=== PATIENT | female | born 1945 | race Caucasian/White ===

== ENCOUNTER 2017-07-17 06:37 | Day surgery (SDC) | payer MEDICARE, BC ==
[2017-07-17] MEDS ORDERED: Sodium Chloride 0.9% 10 ML Syringe FLUSH PRN (07:15)
[2017-07-17] MEDS ORDERED: Lactated Ringers 1,000 ML IV SCH (07:15)
[2017-07-17] MEDS ORDERED: Propofol 200 MG/20 ML SDV IV ONE (09:13)
[2017-07-17] MEDS ORDERED: Atropine 0.4 MG/ML SDV IVPUSH ONE (09:13)
[2017-07-17] MEDS ORDERED: Midazolam 1 MG/ML 2 ML SDV IV ONE (09:13)
--- NOTE | 2017-07-17 10:03 | PCM.OPNOTE ---
- General Post-Op/Procedure Note Date of Surgery/Procedure: 07/17/17 Operative Procedure(s): egd with bx. c scope with bx Findings: hiatal hernia gastritis transverse and rectal polyp sigmoid diverticulosis Pre Op Diagnosis: anemia Post-Op Diagnosis: hiatal hernia. gastritis. transverse and rectal polyp. sigmoid diverticulosis Anesthesia Technique: [facility] [place] Primary Surgeon: Haresh Munguia Anesthesia Provider: Angelito Renteria Pathology: stomach transversed and rectal polyp Complications: None Condition: Good Free Text/Narrative:: see dictation
--- NOTE | 2017-07-17 10:18 | OR ---
DATE OF OPERATION: 07/17/2017 SURGEON: Haresh Munguia MD PROCEDURES PERFORMED: 1. EGD with cold forceps biopsy. 2. Colonoscopy with cold forceps biopsy. PREOPERATIVE DIAGNOSIS: Asymptomatic anemia. POSTOPERATIVE DIAGNOSES: 1. Mild gastritis. 2. Hiatal hernia. 3. Hyperplastic polyps of the transverse and rectum. 4. Sigmoid diverticulosis. INDICATIONS FOR PROCEDURE: This is a 71-year-old white female who was referred with the above-mentioned complaints. She was offered and accepted an EGD and colonoscope. DESCRIPTION OF PROCEDURE: After an excellent IV sedation was administered, the bite block was inserted. The flexible endoscope was passed without difficulty down the patient's esophagus and into the stomach. The stomach was insufflated. Scope was passed through the pylorus, to the second portion of the duodenum, and slowly withdrawn. The following findings were noted. 1. Duodenum was unremarkable. 2. Stomach demonstrated a hiatal hernia with approximately one-third of the stomach in the chest. Mild gastritis was noted. Biopsies were taken. 3. Esophagus, GE junction 30 cm, and was unremarkable. The stomach was deflated and the scope was removed. Our attention was then turned to the colon. Digital rectal exam was performed. No marked abnormality was noted. Flexible colonoscope was inserted and advanced to the cecum without difficulty. The prep was excellent. The following findings were noted. Ascending colon was unremarkable. Transverse colon, a small hyperplastic polyp, biopsied with cold biopsy forceps and sent for permanent. Descending colon, unremarkable. Sigmoid, sigmoid diverticulosis. Rectum, small hyperplastic polyp, biopsied with cold biopsy forceps and sent for permanent. Colon was deflated. Scope was removed. The patient tolerated the procedure well and was taken to the recovery room in a good condition. /[id number] /MODL
[2017-07-17 11:06] VITALS: BP 126/72
== END 2017-07-17 10:53 | disposition home or self-care (01) ==
LOC: FB.SDS 06:37
PROVIDERS: ATTEND Surgery
DX: D50.9 Iron deficiency anemia, unspecified (principal); K29.50 Unspecified chronic gastritis without bleeding; K44.9 Diaphragmatic hernia without obstruction or gangrene; D12.3 Benign neoplasm of transverse colon; K57.30 Diverticulosis of large intestine without perforation or abscess without bleeding; K62.1 Rectal polyp; I10 Essential (primary) hypertension; E03.9 Hypothyroidism, unspecified; Z87.891 Personal history of nicotine dependence; Z79.899 Other long term (current) drug therapy; Z91.018 Allergy to other foods
CPT/HCPCS: 00813-QZ; 88305; 88342; J0461; J2250; J2704; J7120

== ENCOUNTER 2018-07-07 07:13 | Day surgery (SDC) | payer MEDICARE, BC ==
[2018-07-07] MEDS ORDERED: Lactated Ringers 1,000 ML IV ONE (07:14)
[2018-07-07] MEDS ORDERED: Midazolam 1 MG/ML 2 ML SDV IV ONE (07:14)
[2018-07-07] MEDS ORDERED: fentaNYL 100 MCG/2 ML SDV IV ONE (07:14)
[2018-07-07] MEDS ORDERED: Lidocaine 2% 100 MG/5 ML Syringe IVPUSH ONE (07:14)
[2018-07-07] MEDS ORDERED: ePHEDrine 50 MG/ML SDV IV ONE (07:14)
[2018-07-07] MEDS ORDERED: Ondansetron 4 MG/2 ML SDV IVPUSH ONE (07:14)
[2018-07-07] MEDS ORDERED: Dexamethasone 4 MG/ML 5 ML MDV IVPUSH ONE (07:14)
[2018-07-07] MEDS ORDERED: Ketorolac 30 MG/ML SDV IVPUSH ONE (07:14)
[2018-07-07] MEDS ORDERED: HYDROmorphone 2 MG/ML SDV IV ONE (07:14)
[2018-07-07] MEDS ORDERED: Neostigmine Methylsulfate 10 MG/10 ML MDV IVPUSH ONE (07:14)
[2018-07-07] MEDS ORDERED: Rocuronium 50 MG/5 ML Vial IVPUSH ONE (07:14)
[2018-07-07] MEDS ORDERED: Glycopyrrolate 0.2 MG/ML 5 ML MDV IV ONE (07:14)
[2018-07-07] MEDS ORDERED: Propofol 200 MG/20 ML SDV IV ONE (07:14)
[2018-07-07] MEDS ORDERED: Lactated Ringers 1,000 ML IV SCH (07:30)
[2018-07-07] MEDS ORDERED: Sodium Chloride 0.9% 10 ML Syringe FLUSH PRN (07:30)
[2018-07-07] MEDS ORDERED: cefOXitin 2 GM in Sodium Chloride 0.9% 100 ML IV ONE (09:00)
[2018-07-07] MEDS ORDERED: cefOXitin 2 GM Vial IV ONE (09:00)
[2018-07-07] MEDS ORDERED: Lidocaine 1% with EPINEPHrine 1:100,000 20 ML MDV INJECT ONE (09:27)
[2018-07-07] MEDS ORDERED: Bupivacaine 0.5% 30 ML SDV INJECT ONE (09:27)
--- NOTE | 2018-07-07 10:09 | PCM.OPNOTE ---
- General Post-Op/Procedure Note Date of Surgery/Procedure: 07/07/18 Operative Procedure(s): lap cholecystectomy Findings: critical view obtained. Pre Op Diagnosis: sx gallstones Post-Op Diagnosis: Same Anesthesia Technique: General ET Tube, Local (10 ml 1% lido with epi/0.5% buvipicaine) Primary Surgeon: Haresh Munguia Anesthesia Provider: Nalini Stack (ARNEL Salazar ) Pathology: gallstones Complications: None Condition: Good Free Text/Narrative:: see dictation
[2018-07-07] MEDS ORDERED: Acetaminophen/HYDROcodone 325-5 MG Tab PO PRN (10:11)
[2018-07-07 12:05] VITALS: BP 138/76
--- NOTE | 2018-07-08 09:12 | OR ---
DATE OF OPERATION: 07/07/2018 SURGEON: Haresh Munguia MD PROCEDURE PERFORMED: Laparoscopic cholecystectomy. PREOPERATIVE DIAGNOSIS: Symptomatic cholelithiasis. POSTOPERATIVE DIAGNOSIS: Symptomatic cholelithiasis. INDICATIONS FOR PROCEDURE: This is a 72-year-old white female, referred with a history of right upper quadrant abdominal pain. Subsequent workup demonstrated what appeared to be cholelithiasis. Her history is consistent with biliary colic. She was offered and accepted a laparoscopic cholecystectomy. DESCRIPTION OF OPERATION: After an excellent general anesthetic was administered, the patient was prepped and draped in usual sterile manner. Grand total of 10 mL of 1:1 mixture of 1% lidocaine with epinephrine and 0.5% bupivacaine was used to infiltrate our port sites, started at the level of the umbilicus, and after infiltrating with our local, a small vertical midline incision was made. Blunt dissection was carried out, exposing the midline fascia. Fascia was then elevated by placing 2 stay sutures on either side of the midline fascia. An incision was made through the fascia, and the abdominal cavity was entered. After digital palpation to ensure no adhesions, a 10.5-mm Mary trocar was inserted into the patient's abdomen. The patient was then insufflated to 15 mmHg pressure with carbon dioxide, and three 5 mm ports were placed, one in the midline epigastrium and two below the right costal margin. At this point, the patient became bradycardic, pressure was immediately released, and once Anesthesia resolved the situation, the operation was carried out with the pressures at 10 mmHg without any further vasovagal response. Gallbladder was grasped and retracted in a cephalad fashion. The infundibulum was grasped. Blunt dissection was carried out, exposing the cystic duct and cystic artery. After obtaining a critical view, three clips were placed proximally on the cystic duct and one distally, which was then transected. There were some peritoneal adhesions that had a clip placed proximally and distally prior to transection and then three clips were placed proximally on the cystic artery and one distally and this was transected as well. The gallbladder was then dissected free from the gallbladder fossa using electrocautery. Specimen was passed through the periumbilical port and delivered out through the specimen bag. After irrigating and ensuring hemostasis of the gallbladder bed with electrocautery, the trocars were removed under direct visualization. No hemorrhage was noted from the port sites. The periumbilical site was closed with a [id number] 0 Vicryl to approximate the fascia. Ryan were used to close the skin. Dressing was applied. Needle, sponge, and instrument counts were reported as correct. The patient was taken to recovery in good condition. /[id number] /MODL
== END 2018-07-07 12:17 | disposition home or self-care (01) ==
LOC: FB.SDS 07:13
PROVIDERS: ATTEND Surgery
DX: K66.0 Peritoneal adhesions (postprocedural) (postinfection) (principal); K80.12 Calculus of gallbladder with acute and chronic cholecystitis without obstruction; R00.1 Bradycardia, unspecified; I10 Essential (primary) hypertension; E03.9 Hypothyroidism, unspecified; M19.90 Unspecified osteoarthritis, unspecified site; K21.9 Gastro-esophageal reflux disease without esophagitis; Z87.891 Personal history of nicotine dependence; Z91.018 Allergy to other foods; Z79.899 Other long term (current) drug therapy
CPT/HCPCS: 00790; 47562; 88304; A9270; J0694; J1100; J1170; J1885; J2001; J2250; J2405; J2704; J2710; J3010; J3490; J7120

== ENCOUNTER 2018-07-09 16:56 | Inpatient (IN) | payer MEDICARE, BC ==
--- NOTE | 2018-07-09 17:12 | EDM.PDOC ---
ED HPI GENERAL MEDICAL PROBLEM - General Stated Complaint: ACHEY Time Seen by Provider: 07/09/18 16:56 Source of Information: Reports: Patient, Family History Limitations: Reports: Other (abdominal pain) - History of Present Illness INITIAL COMMENTS - FREE TEXT/NARRATIVE: 72 y.o.w.f S/P Cholecystectomy last Friday, came to te ed due to worsening pain at her RUQ of her abdomen and suprapubic area. 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 No F/C. pt has difficulty walking due to abd. pain. Ever step she takes makes her abd. pain worse. No Fall, no new trauma to her abdomen, no dysuria. Pt took her pain meds as recommended. No Dizziness, no other acute med issues. BP 128/84 RR 20 Temp 36.9 Pulse ox 96% on RA Pulse 104 Onset Date: 07/07/18 Onset Time: 11:00 Duration: Day(s):, Intermittent Location: Reports: Abdomen Quality: Reports: Dull, Pressure Severity: Moderate Improves with: Reports: Rest Worsens with: Reports: Movement Context: Reports: Other (S/P GB surgery) Associated Symptoms: Reports: Cough, Loss of Appetite R upper abdomen, midback, hip & R shoulder Pain Score (Numeric/FACES): 9 - Related Data Allergies Allergy/AdvReac Type Severity Reaction Status Date / Time grapefruit AdvReac Nausea Verified 07/09/18 17:21 Home Meds: Home Meds Cyanocobalamin (Vitamin B12) [Vitamin B12] 1,000 mcg PO DAILY 11/14/14 [History] Vitamin E 1,000 unit PO DAILY 11/14/14 [History] Bisoprolol Fumarate/HCTZ [Ziac 5-6.25 MG] 1 tab PO DAILY 11/15/14 [History] Betamethasone Dipropionate [Diprosone 0.05% Crm] 1 applic TP BID PRN 07/16/17 [ History] Ferrous Sulfate 325 mg PO DAILY 07/16/17 [History] Furosemide [Lasix] 20 mg PO DAILY PRN 07/16/17 [History] Levothyroxine Sodium 137 mcg PO DAILY 07/16/17 [History] Pantoprazole Sodium [Protonix] 20 mg PO DAILY 07/06/18 [History] Acetaminophen/HYDROcodone [Dudley 325-5 MG] 1 - 2 tab PO Q6H PRN #20 tab [Rx] Celecoxib [CeleBREX] 100 mg PO BID #10 cap 07/07/18 [Rx] Past Medical History HEENT History: Reports: Cataract, Glaucoma, Hard of Hearing, Other (See Below) Other HEENT History: presbyopia. pseudophakia bilat. Cardiovascular History: Reports: Blood Clots/VTE/DVT, Hypertension Respiratory History: Reports: None Gastrointestinal History: Reports: Gastritis Genitourinary History: Reports: None ORIENTATION AND MOBILITY SPECIALIST History: Reports: Other ORIENTATION AND MOBILITY SPECIALIST History: SUE for cervical CA. II PARA II Musculoskeletal History: Reports: Arthritis, Osteoarthritis Neurological History: Reports: None Psychiatric History: Reports: None Endocrine/Metabolic History: Reports: Hypothyroidism, Obesity/BMI 30+ Hematologic History: Reports: Anemia, Blood Transfusion(s) Immunologic History: Reports: None Oncologic (Cancer) History: Reports: Breast, Cervix Dermatologic History: Reports: None - Infectious Disease History Infectious Disease History: Reports: Chicken Pox, Measles - Past Surgical History Head Surgeries/Procedures: Reports: None HEENT Surgical History: Reports: Cataract Surgery, Other (See Below) Other HEENT Surgeries/Procedures: IRIDOTOMY IRIDECTOMY LASER SURGERY-BILATERAL. PHACO IOL BILATERAL Cardiovascular Surgical History: Reports: Vascular Surgery Other Cardiovascular Surgeries/Procedures: RADIOFREQUENCY ABLATION OF LEFT GSV Respiratory Surgical History: Reports: None GI Surgical History: Reports: Colonoscopy, EGD Female Surgical History: Reports: Hysterectomy, Mastectomy Endocrine Surgical History: Reports: None Neurological Surgical History: Reports: None Musculoskeletal Surgical History: Reports: Knee Replacement, Other (See Below) Other Musculoskeletal Surgeries/Procedures:: TRIGGER FINGER RELEASE, BILATERAL TOTAL KNEE REPLACEMENT. Oncologic Surgical History: Reports: Mastectomy Dermatological Surgical History: Reports: None Social & Family History - Family History Family Medical History: Noncontributory - Caffeine Use Caffeine Use: Reports: Coffee Other Caffeine Use: 5 cups/day ED ROS GENERAL - Review of Systems Review Of Systems: See Below Constitutional: Reports: Malaise HEENT: Reports: No Symptoms Respiratory: Reports: No Symptoms Cardiovascular: Reports: No Symptoms Endocrine: Reports: No Symptoms GI/Abdominal: Reports: Abdominal Pain : Reports: Other (suprapubic pain) Musculoskeletal: Reports: No Symptoms Skin: Reports: Other (surgical wounds) Neurological: Reports: No Symptoms Psychiatric: Reports: No Symptoms Hematologic/Lymphatic: Reports: No Symptoms Immunologic: Reports: No Symptoms ED EXAM, GI/ABD - Physical Exam Exam: See Below Exam Limited By: Other (abd.pain) General Appearance: Alert, WD/WN, Moderate Distress Eyes: Bilateral: Normal Appearance Ears: Normal External Exam Nose: Normal Inspection Throat/Mouth: Normal Inspection, Normal Lips, Normal Voice, No Airway Compromise Head: Atraumatic, Normocephalic Neck: Normal Inspection, Supple, Non-Tender, Full Range of Motion Respiratory/Chest: No Respiratory Distress, Lungs Clear, Normal Breath Sounds, Chest Non-Tender Cardiovascular: Normal Peripheral Pulses, Regular Rate, Rhythm, No Edema GI/Abdominal Exam: Distended, Guarding, Tender (RUQ of abdomen and supra pubic. ), Abnormal Bowel Sounds (Female) Exam: Deferred Rectal (Female) Exam: Deferred Back Exam: Normal Inspection, Full Range of Motion Extremities: Normal Inspection, Normal Range of Motion, Non-Tender, No Pedal Edema, Normal Capillary Refill Neurological: Alert, Oriented, CN II-XII Intact, Normal Cognition, Abnormal Gait (due to abd. pain) Psychiatric: Normal Affect, Normal Mood Skin Exam: Pallor, Other (well healing surgical scars) Lymphatic: No Adenopathy Course - Vital Signs Text/Narrative:: 72 y.o.w.f S/P Cholecystectomy last Friday, came to te ed due to worsening pain at her RUQ of her abdomen and suprapubic area. 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 No F/C. pt has difficulty walking due to abd. pain. Ever step she takes makes her abd. pain worse. No Fall, no new trauma to her abdomen, no dysuria. Pt took her pain meds as recommended. No Dizziness, no other acute med issues. BP 128/84 RR 20 Temp 36.9 Pulse ox 96% on RA Pulse 104 PE: lll apearing 72 y.o.w.f S/P GB surgery last Friday. Imaging: Please see Dr. Munguia's note labs: CBC: NL Neutros were 84.8 % however CMP: Na 133 K 3.3 Cl 95 GFR > 60 Ca 8.8 BUN/Cr. ratio elevated, TB 4.6 Ind Bili 2.5 DB 2.12 Glc 138 Impression: Abd. pain after surgery with elevated liver enzymes Pt was stable in the Ed 5.10 pm Consultation: Dr. Munguia, Surgeon: Order CBC and CMP and call him for the results 5.30 pm: Dr. Munguia arrived in the ED and took over to care of this patient. Last Recorded V/S: Last Vital Signs Temp 37.8 C 07/12/18 07:51 Pulse 88 07/12/18 07:51 Resp 18 07/12/18 07:51 BP 135/73 07/12/18 07:51 Pulse Ox 93 L 07/12/18 07:51 - Orders/Labs/Meds Labs: Laboratory Tests 07/09/18 07/09/18 07/09/18 Range/Units 17:21 17:21 17:21 WBC 10.6 (4.5-12.0) X10-3/uL RBC 4.68 (3.23-5.20) x10(6)uL Hgb 15.3 (11.5-15.5) g/dL Hct 43.9 (30.0-51.3) % MCV 93.8 (80-96) fL MCH 32.6 (27.7-33.6) pg MCHC 34.8 (32.2-35.4) g/dL RDW 12.1 (11.5-15.5) % Plt Count 236 (125-369) X10(3)uL MPV 7.8 (7.4-10.4) fL Neut % (Auto) 84.8 H (46-82) % Lymph % (Auto) 7.4 L (13-37) % [place] % (Auto) 7.2 (4-12) % Eos % (Auto) 0 L (1.0-5.0) % Baso % (Auto) 1 (0-2) % Neut # (Auto) 8.9 H (1.6-8.3) # Lymph # (Auto) 0.8 (0.6-5.0) # Mobile # (Auto) 0.8 (0.0-1.3) # Eos # (Auto) 0.0 (0.0-0.8) # Baso # (Auto) 0.1 (0.0-0.2) # PT (8.7-11.1) INR (0.89-1.13) Sodium 133 L (135-145) mmol/L Potassium 3.3 L (3.5-5.3) mmol/L Chloride 95 L (100-110) mmol/L Carbon Dioxide 25 (21-32) mmol/L BUN 15 (7-18) mg/dL Creatinine 0.7 (0.55-1.02) mg/dL Est Cr Clr Drug Dosing TNP Estimated GFR (MDRD) > 60 (>60) BUN/Creatinine Ratio 21.4 H (9-20) Glucose 138 H (80-116) mg/dL Calcium 8.8 (8.6-10.2) mg/dL Total Bilirubin 4.6 H 4.6 H (0.1-1.3) mg/dL Direct Bilirubin 2.12 H (0.10-0.20) mg/dL Indirect Bilirubin 2.5 H (0.0-1.0) mg/dL AST 56 H (5-25) IU/L ALT 94 H (12-36) U/L Alkaline Phosphatase 65 (56-112) IU/L Total Protein 7.4 (6.0-8.0) g/dL Albumin 3.5 (3.2-4.6) g/dL Globulin 3.9 g/dL Albumin/Globulin Ratio 0.9 Urine Color (YELLOW) Urine Appearance (CLEAR) Urine pH (5.0-6.5) Ur Specific [place] (1.010-1.025) Urine Protein (NEGATIVE) mg/dL Urine Glucose (UA) (NORMAL) mg/dL Urine Ketones (NEGATIVE) mg/dL Urine Occult Blood (NEGATIVE) Urine Nitrite (NEGATIVE) Urine Bilirubin (NEGATIVE) Urine Urobilinogen (NEGATIVE) mg/dL Ur Leukocyte Esterase (NEGATIVE) Urine RBC (0-5) Urine WBC (0-5) Ur Squamous Epith Cells (NS,R,O) Urine Bacteria (NS) Acetaminophen (<2) ug/mL 07/09/18 07/10/18 07/10/18 Range/Units 17:21 00:40 06:15 WBC 9.8 (4.5-12.0) X10-3/uL RBC 4.35 (3.23-5.20) x10(6)uL Hgb 13.9 (11.5-15.5) g/dL Hct 40.2 (30.0-51.3) % MCV 92.3 (80-96) fL MCH 32.0 (27.7-33.6) pg MCHC 34.7 (32.2-35.4) g/dL RDW 12.0 (11.5-15.5) % Plt Count 219 (125-369) X10(3)uL MPV 8.4 (7.4-10.4) fL Neut % (Auto) 77.0 (46-82) % Lymph % (Auto) 11.8 L (13-37) % Mobile % (Auto) 8.9 (4-12) % Eos % (Auto) 2 (1.0-5.0) % Baso % (Auto) 0 (0-2) % Neut # (Auto) 7.5 (1.6-8.3) # Lymph # (Auto) 1.2 (0.6-5.0) # Mobile # (Auto) 0.9 (0.0-1.3) # Eos # (Auto) 0.2 (0.0-0.8) # Baso # (Auto) 0.0 (0.0-0.2) # PT (8.7-11.1) INR (0.89-1.13) Sodium (135-145) mmol/L Potassium (3.5-5.3) mmol/L Chloride (100-110) mmol/L Carbon Dioxide (21-32) mmol/L BUN (7-18) mg/dL Creatinine (0.55-1.02) mg/dL Est Cr Clr Drug Dosing Estimated GFR (MDRD) (>60) BUN/Creatinine Ratio (9-20) Glucose (80-116) mg/dL Calcium (8.6-10.2) mg/dL Total Bilirubin (0.1-1.3) mg/dL Direct Bilirubin (0.10-0.20) mg/dL Indirect Bilirubin (0.0-1.0) mg/dL AST (5-25) IU/L ALT (12-36) U/L Alkaline Phosphatase (56-112) IU/L Total Protein (6.0-8.0) g/dL Albumin (3.2-4.6) g/dL Globulin g/dL Albumin/Globulin Ratio Urine Color [place] (YELLOW) Urine Appearance Clear (CLEAR) Urine pH 5.0 (5.0-6.5) Ur Specific [place] 1.010 (1.010-1.025) Urine Protein 30 H (NEGATIVE) mg/dL Urine Glucose (UA) Normal (NORMAL) mg/dL Urine Ketones 50 H (NEGATIVE) mg/dL Urine Occult Blood Moderate H (NEGATIVE) Urine Nitrite Negative (NEGATIVE) Urine Bilirubin Small H (NEGATIVE) Urine Urobilinogen 4 H (NEGATIVE) mg/dL Ur Leukocyte Esterase Small H (NEGATIVE) Urine RBC 0-5 (0-5) Urine WBC 0-5 (0-5) Ur Squamous Epith Cells Occasional (NS,R,O) Urine Bacteria Rare H (NS) Acetaminophen < 2 L (<2) ug/mL 07/10/18 07/10/18 07/10/18 Range/Units 06:15 15:00 15:00 WBC (4.5-12.0) X10-3/uL RBC (3.23-5.20) x10(6)uL Hgb (11.5-15.5) g/dL Hct (30.0-51.3) % MCV (80-96) fL MCH (27.7-33.6) pg MCHC (32.2-35.4) g/dL RDW (11.5-15.5) % Plt Count (125-369) X10(3)uL MPV (7.4-10.4) fL Neut % (Auto) (46-82) % Lymph % (Auto) (13-37) % [place] % (Auto) (4-12) % Eos % (Auto) (1.0-5.0) % Baso % (Auto) (0-2) % Neut # (Auto) (1.6-8.3) # Lymph # (Auto) (0.6-5.0) # Mobile # (Auto) (0.0-1.3) # Eos # (Auto) (0.0-0.8) # Baso # (Auto) (0.0-0.2) # PT 10.4 (8.7-11.1) INR 1.07 (0.89-1.13) Sodium 135 (135-145) mmol/L Potassium 3.4 L (3.5-5.3) mmol/L Chloride 99 L (100-110) mmol/L Carbon Dioxide 28 (21-32) mmol/L BUN 20 H (7-18) mg/dL Creatinine 0.7 (0.55-1.02) mg/dL Est Cr Clr Drug Dosing 63.45 Estimated GFR (MDRD) > 60 (>60) BUN/Creatinine Ratio 28.6 H (9-20) Glucose 116 (80-116) mg/dL Calcium 8.4 L (8.6-10.2) mg/dL Total Bilirubin 3.9 H 4.2 H (0.1-1.3) mg/dL Direct Bilirubin 1.91 H 2.49 H (0.10-0.20) mg/dL Indirect Bilirubin 2.0 H (0.0-1.0) mg/dL AST 37 H D 32 H D (5-25) IU/L ALT 71 H D 64 H (12-36) U/L Alkaline Phosphatase 56 62 (56-112) IU/L Total Protein 6.3 6.2 (6.0-8.0) g/dL Albumin 2.9 L 2.8 L (3.2-4.6) g/dL Globulin 3.4 g/dL Albumin/Globulin Ratio 0.9 Urine Color (YELLOW) Urine Appearance (CLEAR) Urine pH (5.0-6.5) Ur Specific [place] (1.010-1.025) Urine Protein (NEGATIVE) mg/dL Urine Glucose (UA) (NORMAL) mg/dL Urine Ketones (NEGATIVE) mg/dL Urine Occult Blood (NEGATIVE) Urine Nitrite (NEGATIVE) Urine Bilirubin (NEGATIVE) Urine Urobilinogen (NEGATIVE) mg/dL Ur Leukocyte Esterase (NEGATIVE) Urine RBC (0-5) Urine WBC (0-5) Ur Squamous Epith Cells (NS,R,O) Urine Bacteria (NS) Acetaminophen (<2) ug/mL 07/11/18 Range/Units 06:28 WBC (4.5-12.0) X10-3/uL RBC (3.23-5.20) x10(6)uL Hgb (11.5-15.5) g/dL Hct (30.0-51.3) % MCV (80-96) fL MCH (27.7-33.6) pg MCHC (32.2-35.4) g/dL RDW (11.5-15.5) % Plt Count (125-369) X10(3)uL MPV (7.4-10.4) fL Neut % (Auto) (46-82) % Lymph % (Auto) (13-37) % [place] % (Auto) (4-12) % Eos % (Auto) (1.0-5.0) % Baso % (Auto) (0-2) % Neut # (Auto) (1.6-8.3) # Lymph # (Auto) (0.6-5.0) # Mobile # (Auto) (0.0-1.3) # Eos # (Auto) (0.0-0.8) # Baso # (Auto) (0.0-0.2) # PT (8.7-11.1) INR (0.89-1.13) Sodium 136 (135-145) mmol/L Potassium 3.7 (3.5-5.3) mmol/L Chloride 101 (100-110) mmol/L Carbon Dioxide 29 (21-32) mmol/L BUN 18 (7-18) mg/dL Creatinine 0.8 (0.55-1.02) mg/dL Est Cr Clr Drug Dosing 55.52 Estimated GFR (MDRD) > 60 (>60) BUN/Creatinine Ratio 22.5 H (9-20) Glucose 142 H (80-116) mg/dL Calcium 7.9 L (8.6-10.2) mg/dL Total Bilirubin 4.2 H (0.1-1.3) mg/dL Direct Bilirubin 2.44 H (0.10-0.20) mg/dL Indirect Bilirubin 1.8 H (0.0-1.0) mg/dL AST 30 H (5-25) IU/L ALT 55 H D (12-36) U/L Alkaline Phosphatase 64 (56-112) IU/L Total Protein 5.8 L (6.0-8.0) g/dL Albumin 2.6 L (3.2-4.6) g/dL Globulin 3.2 g/dL Albumin/Globulin Ratio 0.8 Urine Color (YELLOW) Urine Appearance (CLEAR) Urine pH (5.0-6.5) Ur Specific [place] (1.010-1.025) Urine Protein (NEGATIVE) mg/dL Urine Glucose (UA) (NORMAL) mg/dL Urine Ketones (NEGATIVE) mg/dL Urine Occult Blood (NEGATIVE) Urine Nitrite (NEGATIVE) Urine Bilirubin (NEGATIVE) Urine Urobilinogen (NEGATIVE) mg/dL Ur Leukocyte Esterase (NEGATIVE) Urine RBC (0-5) Urine WBC (0-5) Ur Squamous Epith Cells (NS,R,O) Urine Bacteria (NS) Acetaminophen (<2) ug/mL Meds: Medications Discontinued Medications Generic Name Dose Route Start Last Admin Trade Name Freq PRN Reason Stop Dose Admin Bisacodyl 10 mg 07/10/18 09:00 07/12/18 08:19 Dulcolax RECTAL 10 mg DAILY SHANTI Administration Bisacodyl 10 mg 07/10/18 16:17 07/10/18 18:44 Dulcolax RECTAL 07/10/18 16:18 10 mg ONETIME ONE Administration Hydromorphone HCl 0.5 mg 07/09/18 18:20 07/09/18 18:44 Dilaudid IVPUSH 07/09/18 18:21 0.5 mg ONETIME ONE Administration Hydromorphone HCl 0.5 mg 07/09/18 19:05 07/09/18 21:21 Dilaudid IVPUSH 0.5 mg Q2H PRN Administration Pain (severe 7-10) Hydromorphone HCl 1 mg 07/09/18 22:42 07/11/18 12:27 Dilaudid IVPUSH 1 mg Q2H PRN Administration Pain (severe 7-10) Hydroxyzine Pamoate 50 mg 07/09/18 22:37 07/10/18 05:14 Vistaril PO 50 mg Q6H PRN Administration Nausea/Vomiting Hydroxyzine Pamoate 50 mg 07/10/18 08:00 07/12/18 08:18 Vistaril PO 50 mg Q6H SHANTI Administration Lactated Ringer's 1,000 mls @ 125 mls/hr 07/09/18 18:15 07/09/18 19:00 Ringers, Lactated IV 125 mls/hr ASDIRECTED SHANTI Administration Piperacillin Sod/Tazobactam 50 mls @ 100 mls/hr 07/09/18 19:15 07/09/18 20:38 Sod 3.375 gm/ Sodium Chloride IV 100 mls/hr Q6H SHANTI Administration Potassium Chloride 20 meq/ 100 mls @ 50 mls/hr 07/09/18 19:11 07/09/18 19:39 Premix IV 07/09/18 21:10 50 mls/hr ONETIME ONE Administration Potassium Chloride/Dextrose/Sod Cl 1,000 mls @ 75 mls/hr 07/09/18 19:45 07/10 05:10 D5 1/2 Ns W/ 20 Meq/L Kcl IV 125 mls/hr ASDIRECTED SHANTI Administration Potassium Chloride Confirm 07/09/18 19:37 07/09/18 19:47 Kcl 20 Meq In Water 100 Ml Administered 07/09/18 19:38 Not Given Dose 100 mls @ as directed .ROUTE .STK-MED ONE Piperacillin Sod/Tazobactam 50 mls @ 100 mls/hr 07/10/18 02:00 07/12/18 08:14 Sod 3.375 gm/ Sodium Chloride IV 100 mls/hr Q6H SHANTI Administration Potassium Chloride 20 meq/ 100 mls @ 50 mls/hr 07/10/18 07:44 07/10/18 09:13 Premix IV 07/10/18 09:43 50 mls/hr ONETIME ONE Administration Potassium Chloride/Dextrose/Sod Cl 1,000 mls @ 75 mls/hr 07/10/18 17:30 07/11 08:33 D5 1/2 Ns W/ 20 Meq/L Kcl IV 75 mls/hr Q13H SHANTI Administration Iopamidol 100 ml 07/09/18 18:37 07/09/18 18:44 Isovue-370 (76%) IV 07/09/18 18:38 93 ml ONETIME ONE Administration Ketorolac Tromethamine 30 mg 07/09/18 19:05 07/11/18 16:16 Toradol IVPUSH 30 mg Q6H PRN Administration Pain (moderate 4-6) Levothyroxine Sodium 137 mcg 07/10/18 06:00 07/12/18 06:20 Levothroid PO 137 mcg DAILY@0600 SHANTI Administration Pantoprazole 20mg 0 each 07/10/18 07:48 07/12/18 06:21 PO 1 each DAILY@0600 SHANTI Administration Ondansetron HCl 4 mg 07/09/18 18:38 07/09/18 18:42 Zofran IVPUSH 07/09/18 18:39 4 mg ONETIME ONE Administration Ondansetron HCl 4 mg 07/09/18 19:05 Zofran IV Q4H PRN Nausea/Vomiting Polyethylene Glycol 17 gm 07/10/18 09:00 07/12/18 08:19 Miralax PO 17 gm DAILY SHANTI Administration Saccharomyces Boulardii 250 mg 07/09/18 21:00 07/12/18 08:18 Florastor PO 250 mg BID SHANTI Administration Sodium Biphosphate/Sodium Phosphate 133 ml 07/11/18 09:49 07/11/18 11:09 Fleet Enema RECTAL 07/11/18 09:50 133 ml ONETIME ONE Administration Sodium Chloride 10 ml 07/09/18 18:07 07/11/18 20:30 Saline Flush FLUSH 10 ml ASDIRECTED PRN Administration Keep Vein Open Tramadol HCl 100 mg 07/10/18 07:42 Ultram PO Q6H PRN Pain Departure - Departure Time of Disposition: 08:00 Disposition: Refer to Observation Condition: Fair Clinical Impression: Abdominal pain - Discharge Information
[2018-07-09] MEDS ORDERED: Lactated Ringers 1,000 ML IV SCH (18:15)
[2018-07-09] MEDS ORDERED: HYDROmorphone 2 MG/ML SDV IVPUSH ONE (18:20)
[2018-07-09] MEDS: Sodium Chloride 0.9% 10 ML Syringe FLUSH PRN ×2 (18:33→20:38)
[2018-07-09] MEDS ORDERED: Iopamidol 755 Mg/ML 100 ML Bottle IV ONE (18:37)
[2018-07-09] MEDS ORDERED: Ondansetron 4 MG/2 ML SDV IVPUSH ONE (18:38)
[2018-07-09] MEDS ORDERED: HYDROmorphone 2 MG/ML SDV IVPUSH PRN (19:05)
[2018-07-09] MEDS ORDERED: Ondansetron 4 MG/2 ML SDV IV PRN (19:05)
[2018-07-09] MEDS ORDERED: Potassium Chloride 20 MEQ in Premix Bag 1 BAG IV ONE (19:11)
[2018-07-09] MEDS ORDERED: Piperacillin/Tazobactam 3.375 GM in Sodium Chloride 0.9% 50 ML IV SCH (19:15)
--- NOTE | 2018-07-09 19:19 | PCM.HP ---
H&P History of Present Illness - General Date of Service: 07/09/18 Admit Problem/Dx: Admission Diagnosis/Problem Admission Diagnosis/Problem Pain at surgical site - History of Present Illness Initial Comments - Free Text/Narative: Pt underwent a lap cholecystectomy on July 05. Had some issue with abd pain, this was located in the RUQ and apparently radiated into her back. This has persisted. She did not take much pain medication yesterday but did so today. She was place on Celebrex as well as [place], but notes she was taking Equate. No fevers, some nausea and is passing urine. R upper abdomen, midback, hip & R shoulder Pain Score (Numeric/FACES): 9 - Related Data Allergies/Adverse Reactions: Allergies Allergy/AdvReac Type Severity Reaction Status Date / Time grapefruit AdvReac Nausea Verified 07/09/18 17:21 Home Medications: Home Meds Cyanocobalamin (Vitamin B12) [Vitamin B12] 1,000 mcg PO DAILY 11/14/14 [History] Vitamin E 1,000 unit PO DAILY 11/14/14 [History] Bisoprolol Fumarate/HCTZ [Ziac 5-6.25 MG] 1 tab PO DAILY 11/15/14 [History] Betamethasone Dipropionate [Diprosone 0.05% Crm] 1 applic TP BID PRN 07/16/17 [ History] Ferrous Sulfate 325 mg PO DAILY 07/16/17 [History] Furosemide [Lasix] 20 mg PO DAILY PRN 07/16/17 [History] Levothyroxine Sodium 137 mcg PO DAILY 07/16/17 [History] Pantoprazole Sodium [Protonix] 20 mg PO DAILY 07/06/18 [History] Acetaminophen/HYDROcodone [[place] 325-5 MG] 1 - 2 tab PO Q6H PRN #20 tab [Rx] Celecoxib [CeleBREX] 100 mg PO BID #10 cap 07/07/18 [Rx] Past Medical History HEENT History: Reports: Cataract, Glaucoma, Hard of Hearing, Other (See Below) Other HEENT History: presbyopia. pseudophakia bilat. Cardiovascular History: Reports: Blood Clots/VTE/DVT, Hypertension Respiratory History: Reports: None Gastrointestinal History: Reports: Gastritis Genitourinary History: Reports: None [employer] History: Reports: Other OB/BYN History: SUE for cervical CA. II PARA II Musculoskeletal History: Reports: Arthritis, Osteoarthritis Neurological History: Reports: None Psychiatric History: Reports: None Endocrine/Metabolic History: Reports: Hypothyroidism, Obesity/BMI 30+ Hematologic History: Reports: Anemia, Blood Transfusion(s) Immunologic History: Reports: None Oncologic (Cancer) History: Reports: Breast, Cervix Dermatologic History: Reports: None - Infectious Disease History Infectious Disease History: Reports: Chicken Pox, Measles - Past Surgical History Head Surgeries/Procedures: Reports: None HEENT Surgical History: Reports: Cataract Surgery, Other (See Below) Other HEENT Surgeries/Procedures: IRIDOTOMY IRIDECTOMY LASER SURGERY-BILATERAL. PHACO IOL BILATERAL Cardiovascular Surgical History: Reports: Vascular Surgery Other Cardiovascular Surgeries/Procedures: RADIOFREQUENCY ABLATION OF LEFT GSV Respiratory Surgical History: Reports: None GI Surgical History: Reports: Colonoscopy, EGD Female Surgical History: Reports: Hysterectomy, Mastectomy Endocrine Surgical History: Reports: None Neurological Surgical History: Reports: None Musculoskeletal Surgical History: Reports: Knee Replacement, Other (See Below) Other Musculoskeletal Surgeries/Procedures:: TRIGGER FINGER RELEASE, BILATERAL TOTAL KNEE REPLACEMENT. Oncologic Surgical History: Reports: Mastectomy Dermatological Surgical History: Reports: None Social & Family History - Family History Family Medical History: Noncontributory - Caffeine Use Caffeine Use: Reports: Coffee Other Caffeine Use: 5 cups/day H&P Review of Systems - Review of Systems: Review Of Systems: See Below General: Denies: Fever, Chills, Weakness HEENT: Reports: No Symptoms Pulmonary: Reports: No Symptoms Cardiovascular: Reports: No Symptoms Gastrointestinal: Reports: Abdominal Pain. Denies: Vomiting Genitourinary: Reports: No Symptoms Musculoskeletal: Reports: Back Pain Skin: Reports: Bruising Psychiatric: Reports: No Symptoms Neurological: Reports: No Symptoms Exam - Exam Exam: See Below - Vital Signs Vital Signs: Last Vital Signs Temp 97.7 F 07/09/18 19:00 Pulse 75 07/09/18 19:00 Resp 16 07/09/18 19:00 BP 149/84 H 07/09/18 19:00 Pulse Ox 96 07/09/18 19:00 Weight: 84.822 kg - Exam General: Alert, Oriented, Cooperative Lungs: Clear to Auscultation, Normal Respiratory Effort Cardiovascular: Regular Rate, Regular Rhythm GI/Abdominal Exam: Soft, Other (abd wall in the area of the subcostal trochar sites appears discolored. no erythema, no discharge noted in any of the wounds. There is no rebound, guarding noted. ) Rectal (Female) Exam: Normal Rectal Tone Back Exam: Normal Inspection Skin: Other (see above ) - Patient Data Lab Results Last 24 hrs: Laboratory Results - last 24 hr 07/09/18 07/09/18 07/09/18 Range/Units 17:21 17:21 17:21 WBC 10.6 (4.5-12.0) X10-3/uL RBC 4.68 (3.23-5.20) x10(6)uL Hgb 15.3 (11.5-15.5) g/dL Hct 43.9 (30.0-51.3) % MCV 93.8 (80-96) fL MCH 32.6 (27.7-33.6) pg MCHC 34.8 (32.2-35.4) g/dL RDW 12.1 (11.5-15.5) % Plt Count 236 (125-369) X10(3)uL MPV 7.8 (7.4-10.4) fL Neut % (Auto) 84.8 H (46-82) % Lymph % (Auto) 7.4 L (13-37) % Weber % (Auto) 7.2 (4-12) % Eos % (Auto) 0 L (1.0-5.0) % Baso % (Auto) 1 (0-2) % Neut # (Auto) 8.9 H (1.6-8.3) # Lymph # (Auto) 0.8 (0.6-5.0) # Weber # (Auto) 0.8 (0.0-1.3) # Eos # (Auto) 0.0 (0.0-0.8) # Baso # (Auto) 0.1 (0.0-0.2) # Sodium 133 L (135-145) mmol/L Potassium 3.3 L (3.5-5.3) mmol/L Chloride 95 L (100-110) mmol/L Carbon Dioxide 25 (21-32) mmol/L BUN 15 (7-18) mg/dL Creatinine 0.7 (0.55-1.02) mg/dL Est Cr Clr Drug Dosing TNP Estimated GFR (MDRD) > 60 (>60) BUN/Creatinine Ratio 21.4 H (9-20) Glucose 138 H (80-116) mg/dL Calcium 8.8 (8.6-10.2) mg/dL Total Bilirubin 4.6 H 4.6 H (0.1-1.3) mg/dL Direct Bilirubin 2.12 H (0.10-0.20) mg/dL Indirect Bilirubin 2.5 H (0.0-1.0) mg/dL AST 56 H (5-25) IU/L ALT 94 H (12-36) U/L Alkaline Phosphatase 65 (56-112) IU/L Total Protein 7.4 (6.0-8.0) g/dL Albumin 3.5 (3.2-4.6) g/dL Globulin 3.9 g/dL Albumin/Globulin Ratio 0.9 Result Diagrams: 07/09/18 17:21 07/09/18 17:21 Imaging Impressions Last 24 hrs: CT scan reviewed with Dr Mascorro. Liver no ductal dilation. No fluid collection noted in the abdomen. the only notable abnl is in the abd wall in the RUQ where there is some thickening of the wall not suggestive of a hematoma. ??? early cellulitis. Has a paraesophageal hernia is and what appears to be a liver cyst as the only remarkable intraabdominal findings. - Problem List (1) Postoperative abdominal pain SNOMED Code(s): 51275777 ICD Code: R10.9 - UNSPECIFIED ABDOMINAL PAIN; G89.18 - OTHER ACUTE POSTPROCEDURAL PAIN Status: Acute Current Visit: Yes (2) Elevated bilirubin SNOMED Code(s): 91142851 ICD Code: R17 - UNSPECIFIED JAUNDICE Status: Acute Current Visit: Yes (3) Edema of abdominal wall SNOMED Code(s): 889352158 ICD Code: R60.0 - LOCALIZED EDEMA Status: Acute Current Visit: Yes Problem List Initiated/Reviewed/Updated: Yes Orders Last 24hrs: Active Orders 24 hr Category Date Time Status Patient Status [ADT] Routine ADT 07/09/18 19:05 Ordered Notify Provider Vital Signs [RC] ASDIRECTED Care 07/09/18 19:07 Ordered Oxygen Therapy [RC] PRN Care 07/09/18 19:05 Ordered Up ad Opal [RC] ASDIRECTED Care 07/09/18 19:05 Ordered VTE/DVT Education [RC] Per Unit Routine Care 07/09/18 19:05 Ordered Vital Signs [RC] Q4H Care 07/09/18 19:05 Ordered Clear Liquid Diet [DIET] Diet 07/09/18 Dinner Ordered Abdomen Pelvis w Cont [CT] Stat Exams 07/09/18 18:02 Ordered BILIRUBIN DIRECT/INDIRECT [CHEM] AM Lab 07/10/18 05:11 Ordered CBC WITH AUTO DIFF [HEME] AM Lab 07/10/18 05:11 Ordered COMPREHENSIVE METABOLIC PN,CMP [CHEM] AM Lab 07/10/18 05:11 Ordered UA W/MICROSCOPIC [URIN] Stat Lab 07/09/18 17:10 Ordered HYDROmorphone [Dilaudid] Med 07/09/18 19:05 Ordered 0.5 mg IVPUSH Q2H PRN Ketorolac [Toradol] Med 07/09/18 19:05 Ordered 30 mg IVPUSH Q6H PRN Lactated Ringers [Ringers, Lactated] 1,000 ml Med 07/09/18 18:15 Active IV ASDIRECTED Levothyroxine Sodium [Levothyroxine Sodium] Med 07/10/18 09:00 Ordered 137 mcg PO DAILY Ondansetron [Zofran] Med 07/09/18 19:05 Ordered 4 mg IV Q4H PRN Pantoprazole Sodium [Protonix] Med 07/10/18 09:00 Ordered 20 mg PO DAILY Piperacillin/Tazobactam [Zosyn] 3.375 gm Med 07/09/18 19:15 Ordered Sodium Chloride 0.9% [Normal Saline] 50 ml IV Q6H Potassium Chloride [KCL 20 MEQ in Water 100 ML] 20 meq Med 07/09/18 19:11 Ordered Premix Bag 1 bag IV ONETIME Saccharomyces Boulardii [Florastor] Med 07/09/18 21:00 Ordered 250 mg PO BID Sodium Chloride 0.9% [Saline Flush] Med 07/09/18 18:07 Active 10 ml FLUSH ASDIRECTED PRN Peripheral IV Insertion Adult [OM.PC] Routine Oth 07/09/18 18:07 Ordered Sequential Compression Device [OM.PC] Per Unit Routine Oth 07/09/18 19:08 Ordered Resuscitation Status Routine Resus Stat 07/09/18 19:05 Ordered Medication Orders Lactated Ringer's (Ringers, Lactated) 1,000 mls @ 125 mls/hr IV ASDIRECTED SHANTI Sodium Chloride (Saline Flush) 10 ml FLUSH ASDIRECTED PRN PRN Reason: Keep Vein Open Last Admin: 07/09/18 18:33 Dose: 10 ml Assessment/Plan Comment:: There is no physical evidence of a duct injury, or intestinal injury. Here bili is up the liver bed was fulgurated for bleeding control and this with appears to be tylenol intake may be a factor. The only marked abnl related to the surgery appears to be the abd wall finding. though her WBC is normal infection needs to be considered. Plan admit. will correct her K will monitor her bili at this time. IV antibiotics for her presumed abd wall infection. Pain control and clear liquid diet.
[2018-07-09] MEDS ORDERED: Potassium Chloride 100 ML ONE (19:37)
[2018-07-09] MEDS ORDERED: D5 1/2 NS w/ 20 mEq/L KCl 1,000 ML IV SCH (19:45)
[2018-07-09] MEDS: Ketorolac 30 MG/ML SDV IVPUSH PRN (19:50)
[2018-07-09] MEDS: Saccharomyces Boulardii (Probiotic) 250 MG Cap PO SCH (22:57)
[2018-07-10] MEDS: Sodium Chloride 0.9% 10 ML Syringe FLUSH PRN ×4 (02:25→13:05)
[2018-07-10] MEDS: HYDROmorphone 2 MG/ML SDV IVPUSH PRN ×3 (02:32→13:05)
[2018-07-10] MEDS: Piperacillin/Tazobactam 3.375 GM in Sodium Chloride 0.9% 50 ML IV SCH ×4 (02:35→19:32)
[2018-07-10] MEDS: Ketorolac 30 MG/ML SDV IVPUSH PRN ×3 (03:30→23:29)
[2018-07-10] MEDS: LEVOTHYROXINE 137 MCG PO SCH (06:19)
[2018-07-10] MEDS ORDERED: Pantoprazole 40 MG Tab.CR PO SCH (07:30)
[2018-07-10] MEDS ORDERED: traMADol 50 MG Tab PO PRN (07:42)
[2018-07-10] MEDS ORDERED: Potassium Chloride 20 MEQ in Premix Bag 1 BAG IV ONE (07:44)
--- NOTE | 2018-07-10 07:52 | PCM.SURGPN ---
- General Info Date of Service: 07/10/18 Date of Surgery/Procedure: 07/07/18 Functional Status: Reports: Tolerating Diet, Urinating, Other (still notes that she has a burning sensation/pain. upper abdomen.). Denies: New Symptoms - Review of Systems General: Denies: Fever Pulmonary: Reports: No Symptoms Cardiovascular: Reports: No Symptoms Gastrointestinal: Reports: Abdominal Pain - Patient Data Vitals - Most Recent: Last Vital Signs Temp 97.9 F 07/10/18 04:00 Pulse 76 07/10/18 04:00 Resp 16 07/10/18 04:00 BP 131/79 07/10/18 04:00 Pulse Ox 94 L 07/10/18 04:00 Weight - Most Recent: 90.537 kg Lab Results Last 24 Hrs: Laboratory Results - last 24 hr 07/09/18 07/09/18 07/09/18 Range/Units 17:21 17:21 17:21 WBC 10.6 (4.5-12.0) X10-3/uL RBC 4.68 (3.23-5.20) x10(6)uL Hgb 15.3 (11.5-15.5) g/dL Hct 43.9 (30.0-51.3) % MCV 93.8 (80-96) fL MCH 32.6 (27.7-33.6) pg MCHC 34.8 (32.2-35.4) g/dL RDW 12.1 (11.5-15.5) % Plt Count 236 (125-369) X10(3)uL MPV 7.8 (7.4-10.4) fL Neut % (Auto) 84.8 H (46-82) % Lymph % (Auto) 7.4 L (13-37) % Greenlee % (Auto) 7.2 (4-12) % Eos % (Auto) 0 L (1.0-5.0) % Baso % (Auto) 1 (0-2) % Neut # (Auto) 8.9 H (1.6-8.3) # Lymph # (Auto) 0.8 (0.6-5.0) # Greenlee # (Auto) 0.8 (0.0-1.3) # Eos # (Auto) 0.0 (0.0-0.8) # Baso # (Auto) 0.1 (0.0-0.2) # Sodium 133 L (135-145) mmol/L Potassium 3.3 L (3.5-5.3) mmol/L Chloride 95 L (100-110) mmol/L Carbon Dioxide 25 (21-32) mmol/L BUN 15 (7-18) mg/dL Creatinine 0.7 (0.55-1.02) mg/dL Est Cr Clr Drug Dosing TNP Estimated GFR (MDRD) > 60 (>60) BUN/Creatinine Ratio 21.4 H (9-20) Glucose 138 H (80-116) mg/dL Calcium 8.8 (8.6-10.2) mg/dL Total Bilirubin 4.6 H 4.6 H (0.1-1.3) mg/dL Direct Bilirubin 2.12 H (0.10-0.20) mg/dL Indirect Bilirubin 2.5 H (0.0-1.0) mg/dL AST 56 H (5-25) IU/L ALT 94 H (12-36) U/L Alkaline Phosphatase 65 (56-112) IU/L Total Protein 7.4 (6.0-8.0) g/dL Albumin 3.5 (3.2-4.6) g/dL Globulin 3.9 g/dL Albumin/Globulin Ratio 0.9 Urine Color (YELLOW) Urine Appearance (CLEAR) Urine pH (5.0-6.5) Ur Specific [place] (1.010-1.025) Urine Protein (NEGATIVE) mg/dL Urine Glucose (UA) (NORMAL) mg/dL Urine Ketones (NEGATIVE) mg/dL Urine Occult Blood (NEGATIVE) Urine Nitrite (NEGATIVE) Urine Bilirubin (NEGATIVE) Urine Urobilinogen (NEGATIVE) mg/dL Ur Leukocyte Esterase (NEGATIVE) Urine RBC (0-5) Urine WBC (0-5) Ur Squamous Epith Cells (NS,R,O) Urine Bacteria (NS) 07/10/18 07/10/18 07/10/18 Range/Units 00:40 06:15 06:15 WBC 9.8 (4.5-12.0) X10-3/uL RBC 4.35 (3.23-5.20) x10(6)uL Hgb 13.9 (11.5-15.5) g/dL Hct 40.2 (30.0-51.3) % MCV 92.3 (80-96) fL MCH 32.0 (27.7-33.6) pg MCHC 34.7 (32.2-35.4) g/dL RDW 12.0 (11.5-15.5) % Plt Count 219 (125-369) X10(3)uL MPV 8.4 (7.4-10.4) fL Neut % (Auto) 77.0 (46-82) % Lymph % (Auto) 11.8 L (13-37) % Greenlee % (Auto) 8.9 (4-12) % Eos % (Auto) 2 (1.0-5.0) % Baso % (Auto) 0 (0-2) % Neut # (Auto) 7.5 (1.6-8.3) # Lymph # (Auto) 1.2 (0.6-5.0) # Greenlee # (Auto) 0.9 (0.0-1.3) # Eos # (Auto) 0.2 (0.0-0.8) # Baso # (Auto) 0.0 (0.0-0.2) # Sodium 135 (135-145) mmol/L Potassium 3.4 L (3.5-5.3) mmol/L Chloride 99 L (100-110) mmol/L Carbon Dioxide 28 (21-32) mmol/L BUN 20 H (7-18) mg/dL Creatinine 0.7 (0.55-1.02) mg/dL Est Cr Clr Drug Dosing 63.45 Estimated GFR (MDRD) > 60 (>60) BUN/Creatinine Ratio 28.6 H (9-20) Glucose 116 (80-116) mg/dL Calcium 8.4 L (8.6-10.2) mg/dL Total Bilirubin 3.9 H (0.1-1.3) mg/dL Direct Bilirubin 1.91 H (0.10-0.20) mg/dL Indirect Bilirubin 2.0 H (0.0-1.0) mg/dL AST 37 H D (5-25) IU/L ALT 71 H D (12-36) U/L Alkaline Phosphatase 56 (56-112) IU/L Total Protein 6.3 (6.0-8.0) g/dL Albumin 2.9 L (3.2-4.6) g/dL Globulin 3.4 g/dL Albumin/Globulin Ratio 0.9 Urine Color [place] (YELLOW) Urine Appearance Clear (CLEAR) Urine pH 5.0 (5.0-6.5) Ur Specific [place] 1.010 (1.010-1.025) Urine Protein 30 H (NEGATIVE) mg/dL Urine Glucose (UA) Normal (NORMAL) mg/dL Urine Ketones 50 H (NEGATIVE) mg/dL Urine Occult Blood Moderate H (NEGATIVE) Urine Nitrite Negative (NEGATIVE) Urine Bilirubin Small H (NEGATIVE) Urine Urobilinogen 4 H (NEGATIVE) mg/dL Ur Leukocyte Esterase Small H (NEGATIVE) Urine RBC 0-5 (0-5) Urine WBC 0-5 (0-5) Ur Squamous Epith Cells Occasional (NS,R,O) Urine Bacteria Rare H (NS) Med Orders - Current: Current Medications Hydromorphone HCl (Dilaudid) 1 mg IVPUSH Q2H PRN PRN Reason: Pain (severe 7-10) Last Admin: 07/10/18 07:41 Dose: 1 mg Hydroxyzine Pamoate (Vistaril) 50 mg PO Q6H PRN PRN Reason: Nausea/Vomiting Last Admin: 07/10/18 05:14 Dose: 50 mg Potassium Chloride/Dextrose/Sod Cl (D5 1/2 Ns W/ 20 Meq/L Kcl) 1,000 mls @ 75 mls/hr IV ASDIRECTED [facility] Last Admin: 07/10/18 05:10 Dose: 125 mls/hr Piperacillin Sod/Tazobactam (Sod 3.375 gm/ Sodium Chloride) 50 mls @ 100 mls/ hr IV Q6H [facility] Last Admin: 07/10/18 02:35 Dose: 100 mls/hr Potassium Chloride 20 meq/ (Premix) 100 mls @ 50 mls/hr IV ONETIME ONE Stop: 07/10/18 09:43 Ketorolac Tromethamine (Toradol) 30 mg IVPUSH Q6H PRN PRN Reason: Pain (moderate 4-6) Last Admin: 07/10/18 03:30 Dose: 30 mg Levothyroxine Sodium (Levothroid) 137 mcg PO DAILY@0600 [facility] Last Admin: 07/10/18 06:19 Dose: 137 mcg Ondansetron HCl (Zofran) 4 mg IV Q4H PRN PRN Reason: Nausea/Vomiting Pantoprazole Sodium (Protonix) 20 mg PO ACBREAKFAST [facility] Saccharomyces Meloniedii (Florastor) 250 mg PO BID [facility] Last Admin: 07/09/18 22:57 Dose: Not Given Sodium Chloride (Saline Flush) 10 ml FLUSH ASDIRECTED PRN PRN Reason: Keep Vein Open Last Admin: 07/10/18 02:25 Dose: 10 ml Tramadol HCl (Ultram) 100 mg PO Q6H PRN PRN Reason: Pain Discontinued Medications Hydromorphone HCl (Dilaudid) 0.5 mg IVPUSH ONETIME ONE Stop: 07/09/18 18:21 Last Admin: 07/09/18 18:44 Dose: 0.5 mg Hydromorphone HCl (Dilaudid) 0.5 mg IVPUSH Q2H PRN PRN Reason: Pain (severe 7-10) Last Admin: 07/09/18 21:21 Dose: 0.5 mg Lactated Ringer's (Ringers, Lactated) 1,000 mls @ 125 mls/hr IV ASDIRECTED [facility] Last Admin: 07/09/18 19:00 Dose: 125 mls/hr Piperacillin Sod/Tazobactam (Sod 3.375 gm/ Sodium Chloride) 50 mls @ 100 mls/ hr IV Q6H [facility] Last Admin: 07/09/18 20:38 Dose: 100 mls/hr Potassium Chloride 20 meq/ (Premix) 100 mls @ 50 mls/hr IV ONETIME ONE Stop: 07/09/18 21:10 Last Admin: 07/09/18 19:39 Dose: 50 mls/hr Potassium Chloride (Kcl 20 Meq In Water 100 Ml) Confirm Administered Dose 100 mls @ as directed .ROUTE .STK-MED ONE Stop: 07/09/18 19:38 Last Admin: 07/09/18 19:47 Dose: Not Given Iopamidol (Isovue-370 (76%)) 100 ml IV ONETIME ONE Stop: 07/09/18 18:38 Last Admin: 07/09/18 18:44 Dose: 93 ml Ondansetron HCl (Zofran) 4 mg IVPUSH ONETIME ONE Stop: 07/09/18 18:39 Last Admin: 07/09/18 18:42 Dose: 4 mg - Exam Wound/Incisions: Healing Well, Other (no change to discoloration ) General: Alert, Oriented, Cooperative, No Acute Distress Lungs: Clear to Auscultation, Normal Respiratory Effort Cardiovascular: Regular Rate, Regular Rhythm GI/Abdominal Exam: Normal Bowel Sounds, Tender (some incisional tenderness). No : Guarding, Rigid, Rebound Skin: Warm, Dry, Intact - Problem List & Annotations (1) Postoperative abdominal pain SNOMED Code(s): 10311859 Code(s): R10.9 - UNSPECIFIED ABDOMINAL PAIN; G89.18 - OTHER ACUTE POSTPROCEDURAL PAIN Status: Acute Current Visit: Yes (2) Elevated bilirubin SNOMED Code(s): 86562550 Code(s): R17 - UNSPECIFIED JAUNDICE Status: Acute Current Visit: Yes (3) Edema of abdominal wall SNOMED Code(s): 890215536 Code(s): R60.0 - LOCALIZED EDEMA Status: Acute Current Visit: Yes - Problem List Review Problem List Initiated/Reviewed/Updated: Yes - My Orders Last 24 Hours: Active Orders 24 hr Category Date Time Status Patient Status [ADT] Routine ADT 07/09/18 19:05 Active Communication Order [RC] ROUTINE Care 07/09/18 19:32 Active Notify Provider Vital Signs [RC] ASDIRECTED Care 07/09/18 19:07 Active Oxygen Therapy [RC] PRN Care 07/09/18 19:05 Active Up ad Opal [RC] ASDIRECTED Care 07/09/18 19:05 Active VTE/DVT Education [RC] Per Unit Routine Care 07/09/18 19:05 Active Vital Signs [RC] Q4H Care 07/09/18 19:05 Active Clear Liquid Diet [DIET] Diet 07/09/18 Dinner Ordered Abdomen Pelvis w Cont [CT] Stat Exams 07/09/18 18:02 Taken D5 1/2 NS w/ 20 mEq/L KCl 1,000 ml Med 07/09/18 19:45 Active IV ASDIRECTED HYDROmorphone [Dilaudid] Med 07/09/18 22:42 Active 1 mg IVPUSH Q2H PRN Ketorolac [Toradol] Med 07/09/18 19:05 Active 30 mg IVPUSH Q6H PRN Levothyroxine [Levothroid] Med 07/10/18 06:00 Active 137 mcg PO DAILY@0600 Ondansetron [Zofran] Med 07/09/18 19:05 Active 4 mg IV Q4H PRN Pantoprazole [ProTONIX] Med 07/10/18 07:30 Active 20 mg PO ACBREAKFAST Piperacillin/Tazobactam [Zosyn] 3.375 gm Med 07/10/18 02:00 Active Sodium Chloride 0.9% [Normal Saline] 50 ml IV Q6H Potassium Chloride [KCL 20 MEQ in Water 100 ML] 20 meq Med 07/10/18 07:44 Ordered Premix Bag 1 bag IV ONETIME Saccharomyces Boulardii [Florastor] Med 07/09/18 21:00 Hold 250 mg PO BID Sodium Chloride 0.9% [Saline Flush] Med 07/09/18 18:07 Active 10 ml FLUSH ASDIRECTED PRN hydrOXYzine pamoate [Vistaril] Med 07/10/18 07:45 Ordered 50 mg PO Q6H hydrOXYzine pamoate [Vistaril] Med 07/09/18 22:37 Stop Req 50 mg PO Q6H PRN traMADol [Ultram] Med 07/10/18 07:42 Ordered 100 mg PO Q6H PRN Peripheral IV Insertion Adult [OM.PC] Routine Oth 07/09/18 18:07 Ordered Sequential Compression Device [OM.PC] Per Unit Routine Oth 07/09/18 19:08 Ordered Resuscitation Status Routine Resus Stat 07/09/18 19:05 Ordered Medication Orders Hydromorphone HCl (Dilaudid) 1 mg IVPUSH Q2H PRN PRN Reason: Pain (severe 7-10) Last Admin: 07/10/18 07:41 Dose: 1 mg Admin: 07/10/18 02:32 Dose: 1 mg Hydroxyzine Pamoate (Vistaril) 50 mg PO Q6H PRN PRN Reason: Nausea/Vomiting Last Admin: 07/10/18 05:14 Dose: 50 mg Admin: 07/09/18 23:02 Dose: 50 mg Potassium Chloride/Dextrose/Sod Cl (D5 1/2 Ns W/ 20 Meq/L Kcl) 1,000 mls @ 75 mls/hr IV ASDIRECTED [facility] Last Admin: 07/10/18 05:10 Dose: 125 mls/hr Piperacillin Sod/Tazobactam (Sod 3.375 gm/ Sodium Chloride) 50 mls @ 100 mls/ hr IV Q6H [facility] Last Admin: 07/10/18 02:35 Dose: 100 mls/hr Potassium Chloride 20 meq/ (Premix) 100 mls @ 50 mls/hr IV ONETIME ONE Stop: 07/10/18 09:43 Ketorolac Tromethamine (Toradol) 30 mg IVPUSH Q6H PRN PRN Reason: Pain (moderate 4-6) Last Admin: 07/10/18 03:30 Dose: 30 mg Admin: 07/09/18 19:50 Dose: 30 mg Levothyroxine Sodium (Levothroid) 137 mcg PO DAILY@0600 [facility] Last Admin: 07/10/18 06:19 Dose: 137 mcg Ondansetron HCl (Zofran) 4 mg IV Q4H PRN PRN Reason: Nausea/Vomiting Pantoprazole Sodium (Protonix) 20 mg PO ACBREAKFAST [facility] Saccharomyces Boulardii (Florastor) 250 mg PO BID [facility] Last Admin: 07/09/18 22:57 Dose: Sodium Chloride (Saline Flush) 10 ml FLUSH ASDIRECTED PRN PRN Reason: Keep Vein Open Last Admin: 07/10/18 02:25 Dose: 10 ml Admin: 07/09/18 20:38 Dose: 10 ml Admin: 07/09/18 18:33 Dose: 10 ml Tramadol HCl (Ultram) 100 mg PO Q6H PRN PRN Reason: Pain - Assessment Assessment (Free Text/Narrative):: physical exam is unremarkable. transaminases have started to drop as has the bilirubin in the past 12 hours wbc is unrmarkable. discoloration bruising is no worse or better.
[2018-07-10] MEDS: Polyethylene Glycol 3350 Powder 17 GM Packet PO SCH (08:50)
[2018-07-10] MEDS: Bisacodyl 10 MG Supp RECTAL SCH (08:54)
[2018-07-10] MEDS: Saccharomyces Boulardii (Probiotic) 250 MG Cap PO SCH ×4 (08:54→20:13)
[2018-07-10] MEDS: PANTOPRAZOLE 20 MG PO SCH (09:06)
--- NOTE | 2018-07-10 13:17 | CT ---
INDICATION: Abdominal pain, postop laparoscopic cholecystectomy Deborah, question ascites. CT ABDOMEN AND PELVIS WITH CONTRAST: Spiral 3.75 mm axial sections were obtained through the abdomen and pelvis with 85 mL Isovue 370 at 2 mL/second, with sagittal and coronal reconstructions, 07/09/18 - no comparisons. Total exam DLP = 1,180.43 mGy-cm. A large fixed hiatal hernia is noted. The heart did not appear enlarged. No pericardial effusion was seen. A tiny area of infiltrate is noted at the superior aspect of the lingula included on the study and could be fibrotic or possibly due to very minimal pneumonia. There is some minimal linear atelectatic appearing changes and/or fibrotic changes at the more inferior lingula and to a lesser extent at the middle lobe - no definite active infiltrate or effusion was seen, however. A tiny probable simple cyst is noted near the jeramie hepatis in the right lobe of the liver. The common bile duct did not appear to be enlarged in this post cholecystectomy patient. There is only minimal fat stranding in the pericholecystic area. Clips are noted at the cystic duct. No free air or evidence of bowel obstruction was seen. Urinary bladder was unremarkable. The appendix was visualized on coronal images #50 through #58 and appeared normal. It was also visualized on axial images #79 through #84. A small amount of free fluid is noted in the posterior cul-de-sac area, which could be on the basis of the previous surgery. The uterus is absent, compatible with hysterectomy. No ventral hernia was seen. In the anterior abdominal wall extraperitoneal soft tissues, there is fairly extensive fat stranding and increased density, which could be on the basis of cellulitis but should be correlated clinically. There are some tiny low density lesions in the upper and middle pole of the right kidney and to a lesser degree in the lower pole of the right kidney, compatible with simple cystic structures. The adrenal glands appear normal. The spleen was unremarkable. The pancreas is very small in size with some fatty replacement. Calcifications are noted in the abdominal aorta, splenic artery, origin of the celiac axis, and origin of the superior mesenteric artery, in the iliac and femoral arteries. No additional mass lesions, organomegaly, or additional free fluid collections were identified. IMPRESSION: 1. Post cholecystectomy with no definite peritonitis - slight increased density - fat stranding anteriorly in the epigastric area, likely on the basis of the previous cholecystectomy. 2. Possible cellulitis right flank and epigastric area, anterior abdominal wall. 3. ASD. 4. Minimal cystic changes right kidney. 5. Minimal amount of free fluid in the posterior cul-de-sac area, which could be related to the recent surgery. 6. Tiny probable simple cyst right lobe of the liver at the jeramie hepatis. 7. Large fixed hiatal hernia. Report was given in person to Dr. Munguia immediately after the examination was completed on 07/09/18. MALU
[2018-07-10] MEDS ORDERED: Bisacodyl 10 MG Supp RECTAL ONE (16:17)
--- NOTE | 2018-07-10 16:17 | PCM.SURGPN ---
- General Info Date of Service: 07/10/18 Functional Status: Reports: Pain Controlled, Tolerating Diet, Ambulating, Other (felt better after having passed flatus ) - Patient Data Vitals - Most Recent: Last Vital Signs Temp 98.7 F 07/10/18 12:00 Pulse 93 07/10/18 12:00 Resp 18 07/10/18 12:00 BP 94/64 07/10/18 12:00 Pulse Ox 95 07/10/18 12:00 Weight - Most Recent: 90.537 kg I&O - Last 24 Hours: Intake & Output 07/10/18 07/10/18 07/10/18 06:59 14:59 22:59 Intake Total 1150 Balance 1150 Lab Results Last 24 Hrs: Laboratory Results - last 24 hr 07/09/18 07/09/18 07/09/18 Range/Units 17:21 17:21 17:21 WBC 10.6 (4.5-12.0) X10-3/uL RBC 4.68 (3.23-5.20) x10(6)uL Hgb 15.3 (11.5-15.5) g/dL Hct 43.9 (30.0-51.3) % MCV 93.8 (80-96) fL MCH 32.6 (27.7-33.6) pg MCHC 34.8 (32.2-35.4) g/dL RDW 12.1 (11.5-15.5) % Plt Count 236 (125-369) X10(3)uL MPV 7.8 (7.4-10.4) fL Neut % (Auto) 84.8 H (46-82) % Lymph % (Auto) 7.4 L (13-37) % [place] % (Auto) 7.2 (4-12) % Eos % (Auto) 0 L (1.0-5.0) % Baso % (Auto) 1 (0-2) % Neut # (Auto) 8.9 H (1.6-8.3) # Lymph # (Auto) 0.8 (0.6-5.0) # [place] # (Auto) 0.8 (0.0-1.3) # Eos # (Auto) 0.0 (0.0-0.8) # Baso # (Auto) 0.1 (0.0-0.2) # PT (8.7-11.1) INR (0.89-1.13) Sodium 133 L (135-145) mmol/L Potassium 3.3 L (3.5-5.3) mmol/L Chloride 95 L (100-110) mmol/L Carbon Dioxide 25 (21-32) mmol/L BUN 15 (7-18) mg/dL Creatinine 0.7 (0.55-1.02) mg/dL Est Cr Clr Drug Dosing TNP Estimated GFR (MDRD) > 60 (>60) BUN/Creatinine Ratio 21.4 H (9-20) Glucose 138 H (80-116) mg/dL Calcium 8.8 (8.6-10.2) mg/dL Total Bilirubin 4.6 H 4.6 H (0.1-1.3) mg/dL Direct Bilirubin 2.12 H (0.10-0.20) mg/dL Indirect Bilirubin 2.5 H (0.0-1.0) mg/dL AST 56 H (5-25) IU/L ALT 94 H (12-36) U/L Alkaline Phosphatase 65 (56-112) IU/L Total Protein 7.4 (6.0-8.0) g/dL Albumin 3.5 (3.2-4.6) g/dL Globulin 3.9 g/dL Albumin/Globulin Ratio 0.9 Urine Color (YELLOW) Urine Appearance (CLEAR) Urine pH (5.0-6.5) Ur Specific [place] (1.010-1.025) Urine Protein (NEGATIVE) mg/dL Urine Glucose (UA) (NORMAL) mg/dL Urine Ketones (NEGATIVE) mg/dL Urine Occult Blood (NEGATIVE) Urine Nitrite (NEGATIVE) Urine Bilirubin (NEGATIVE) Urine Urobilinogen (NEGATIVE) mg/dL Ur Leukocyte Esterase (NEGATIVE) Urine RBC (0-5) Urine WBC (0-5) Ur Squamous Epith Cells (NS,R,O) Urine Bacteria (NS) Acetaminophen (<2) ug/mL 07/09/18 07/10/18 07/10/18 Range/Units 17:21 00:40 06:15 WBC 9.8 (4.5-12.0) X10-3/uL RBC 4.35 (3.23-5.20) x10(6)uL Hgb 13.9 (11.5-15.5) g/dL Hct 40.2 (30.0-51.3) % MCV 92.3 (80-96) fL MCH 32.0 (27.7-33.6) pg MCHC 34.7 (32.2-35.4) g/dL RDW 12.0 (11.5-15.5) % Plt Count 219 (125-369) X10(3)uL MPV 8.4 (7.4-10.4) fL Neut % (Auto) 77.0 (46-82) % Lymph % (Auto) 11.8 L (13-37) % [place] % (Auto) 8.9 (4-12) % Eos % (Auto) 2 (1.0-5.0) % Baso % (Auto) 0 (0-2) % Neut # (Auto) 7.5 (1.6-8.3) # Lymph # (Auto) 1.2 (0.6-5.0) # [place] # (Auto) 0.9 (0.0-1.3) # Eos # (Auto) 0.2 (0.0-0.8) # Baso # (Auto) 0.0 (0.0-0.2) # PT (8.7-11.1) INR (0.89-1.13) Sodium (135-145) mmol/L Potassium (3.5-5.3) mmol/L Chloride (100-110) mmol/L Carbon Dioxide (21-32) mmol/L BUN (7-18) mg/dL Creatinine (0.55-1.02) mg/dL Est Cr Clr Drug Dosing Estimated GFR (MDRD) (>60) BUN/Creatinine Ratio (9-20) Glucose (80-116) mg/dL Calcium (8.6-10.2) mg/dL Total Bilirubin (0.1-1.3) mg/dL Direct Bilirubin (0.10-0.20) mg/dL Indirect Bilirubin (0.0-1.0) mg/dL AST (5-25) IU/L ALT (12-36) U/L Alkaline Phosphatase (56-112) IU/L Total Protein (6.0-8.0) g/dL Albumin (3.2-4.6) g/dL Globulin g/dL Albumin/Globulin Ratio Urine Color [place] (YELLOW) Urine Appearance Clear (CLEAR) Urine pH 5.0 (5.0-6.5) Ur Specific [place] 1.010 (1.010-1.025) Urine Protein 30 H (NEGATIVE) mg/dL Urine Glucose (UA) Normal (NORMAL) mg/dL Urine Ketones 50 H (NEGATIVE) mg/dL Urine Occult Blood Moderate H (NEGATIVE) Urine Nitrite Negative (NEGATIVE) Urine Bilirubin Small H (NEGATIVE) Urine Urobilinogen 4 H (NEGATIVE) mg/dL Ur Leukocyte Esterase Small H (NEGATIVE) Urine RBC 0-5 (0-5) Urine WBC 0-5 (0-5) Ur Squamous Epith Cells Occasional (NS,R,O) Urine Bacteria Rare H (NS) Acetaminophen < 2 L (<2) ug/mL 07/10/18 07/10/18 07/10/18 Range/Units 06:15 15:00 15:00 WBC (4.5-12.0) X10-3/uL RBC (3.23-5.20) x10(6)uL Hgb (11.5-15.5) g/dL Hct (30.0-51.3) % MCV (80-96) fL MCH (27.7-33.6) pg MCHC (32.2-35.4) g/dL RDW (11.5-15.5) % Plt Count (125-369) X10(3)uL MPV (7.4-10.4) fL Neut % (Auto) (46-82) % Lymph % (Auto) (13-37) % [place] % (Auto) (4-12) % Eos % (Auto) (1.0-5.0) % Baso % (Auto) (0-2) % Neut # (Auto) (1.6-8.3) # Lymph # (Auto) (0.6-5.0) # [place] # (Auto) (0.0-1.3) # Eos # (Auto) (0.0-0.8) # Baso # (Auto) (0.0-0.2) # PT 10.4 (8.7-11.1) INR 1.07 (0.89-1.13) Sodium 135 (135-145) mmol/L Potassium 3.4 L (3.5-5.3) mmol/L Chloride 99 L (100-110) mmol/L Carbon Dioxide 28 (21-32) mmol/L BUN 20 H (7-18) mg/dL Creatinine 0.7 (0.55-1.02) mg/dL Est Cr Clr Drug Dosing 63.45 Estimated GFR (MDRD) > 60 (>60) BUN/Creatinine Ratio 28.6 H (9-20) Glucose 116 (80-116) mg/dL Calcium 8.4 L (8.6-10.2) mg/dL Total Bilirubin 3.9 H 4.2 H (0.1-1.3) mg/dL Direct Bilirubin 1.91 H 2.49 H (0.10-0.20) mg/dL Indirect Bilirubin 2.0 H (0.0-1.0) mg/dL AST 37 H D 32 H D (5-25) IU/L ALT 71 H D 64 H (12-36) U/L Alkaline Phosphatase 56 62 (56-112) IU/L Total Protein 6.3 6.2 (6.0-8.0) g/dL Albumin 2.9 L 2.8 L (3.2-4.6) g/dL Globulin 3.4 g/dL Albumin/Globulin Ratio 0.9 Urine Color (YELLOW) Urine Appearance (CLEAR) Urine pH (5.0-6.5) Ur Specific [place] (1.010-1.025) Urine Protein (NEGATIVE) mg/dL Urine Glucose (UA) (NORMAL) mg/dL Urine Ketones (NEGATIVE) mg/dL Urine Occult Blood (NEGATIVE) Urine Nitrite (NEGATIVE) Urine Bilirubin (NEGATIVE) Urine Urobilinogen (NEGATIVE) mg/dL Ur Leukocyte Esterase (NEGATIVE) Urine RBC (0-5) Urine WBC (0-5) Ur Squamous Epith Cells (NS,R,O) Urine Bacteria (NS) Acetaminophen (<2) ug/mL Med Orders - Current: Current Medications Bisacodyl (Dulcolax) 10 mg RECTAL DAILY [facility] Last Admin: 07/10/18 08:54 Dose: 10 mg Hydromorphone HCl (Dilaudid) 1 mg IVPUSH Q2H PRN PRN Reason: Pain (severe 7-10) Last Admin: 07/10/18 13:05 Dose: 1 mg Hydroxyzine Pamoate (Vistaril) 50 mg PO Q6H [facility] Last Admin: 07/10/18 14:24 Dose: 50 mg Potassium Chloride/Dextrose/Sod Cl (D5 1/2 Ns W/ 20 Meq/L Kcl) 1,000 mls @ 75 mls/hr IV ASDIRECTED [facility] Last Admin: 07/10/18 05:10 Dose: 125 mls/hr Piperacillin Sod/Tazobactam (Sod 3.375 gm/ Sodium Chloride) 50 mls @ 100 mls/ hr IV Q6H [facility] Last Admin: 07/10/18 14:16 Dose: 100 mls/hr Ketorolac Tromethamine (Toradol) 30 mg IVPUSH Q6H PRN PRN Reason: Pain (moderate 4-6) Last Admin: 07/10/18 11:21 Dose: 30 mg Levothyroxine Sodium (Levothroid) 137 mcg PO DAILY@0600 [facility] Last Admin: 07/10/18 06:19 Dose: 137 mcg Pantoprazole 20mg 0 each PO DAILY@0600 [facility] Last Admin: 07/10/18 09:06 Dose: 1 each Ondansetron HCl (Zofran) 4 mg IV Q4H PRN PRN Reason: Nausea/Vomiting Polyethylene Glycol (Miralax) 17 gm PO DAILY [facility] Last Admin: 07/10/18 08:50 Dose: 17 gm Saccharomyces Boulardii (Florastor) 250 mg PO BID [facility] Last Admin: 07/10/18 09:05 Dose: 250 mg Sodium Chloride (Saline Flush) 10 ml FLUSH ASDIRECTED PRN PRN Reason: Keep Vein Open Last Admin: 07/10/18 13:05 Dose: 10 ml Discontinued Medications Hydromorphone HCl (Dilaudid) 0.5 mg IVPUSH ONETIME ONE Stop: 07/09/18 18:21 Last Admin: 07/09/18 18:44 Dose: 0.5 mg Hydromorphone HCl (Dilaudid) 0.5 mg IVPUSH Q2H PRN PRN Reason: Pain (severe 7-10) Last Admin: 07/09/18 21:21 Dose: 0.5 mg Hydroxyzine Pamoate (Vistaril) 50 mg PO Q6H PRN PRN Reason: Nausea/Vomiting Last Admin: 07/10/18 05:14 Dose: 50 mg Lactated Ringer's (Ringers, Lactated) 1,000 mls @ 125 mls/hr IV ASDIRECTED [facility] Last Admin: 07/09/18 19:00 Dose: 125 mls/hr Piperacillin Sod/Tazobactam (Sod 3.375 gm/ Sodium Chloride) 50 mls @ 100 mls/ hr IV Q6H [facility] Last Admin: 07/09/18 20:38 Dose: 100 mls/hr Potassium Chloride 20 meq/ (Premix) 100 mls @ 50 mls/hr IV ONETIME ONE Stop: 07/09/18 21:10 Last Admin: 07/09/18 19:39 Dose: 50 mls/hr Potassium Chloride (Kcl 20 Meq In Water 100 Ml) Confirm Administered Dose 100 mls @ as directed .ROUTE .STK-MED ONE Stop: 07/09/18 19:38 Last Admin: 07/09/18 19:47 Dose: Not Given Potassium Chloride 20 meq/ (Premix) 100 mls @ 50 mls/hr IV ONETIME ONE Stop: 07/10/18 09:43 Last Admin: 07/10/18 09:13 Dose: 50 mls/hr Iopamidol (Isovue-370 (76%)) 100 ml IV ONETIME ONE Stop: 07/09/18 18:38 Last Admin: 07/09/18 18:44 Dose: 93 ml Ondansetron HCl (Zofran) 4 mg IVPUSH ONETIME ONE Stop: 07/09/18 18:39 Last Admin: 07/09/18 18:42 Dose: 4 mg Tramadol HCl (Ultram) 100 mg PO Q6H PRN PRN Reason: Pain - Exam Wound/Incisions: No Drainage General: Alert, Oriented, No Acute Distress Lungs: Clear to Auscultation, Normal Respiratory Effort Cardiovascular: Regular Rate, Regular Rhythm GI/Abdominal Exam: Normal Bowel Sounds, Soft, Non-Tender (markedly improved from this am ) - Problem List & Annotations (1) Postoperative abdominal pain SNOMED Code(s): 76070934 Code(s): R10.9 - UNSPECIFIED ABDOMINAL PAIN; G89.18 - OTHER ACUTE POSTPROCEDURAL PAIN Status: Acute Current Visit: Yes (2) Elevated bilirubin SNOMED Code(s): 11932432 Code(s): R17 - UNSPECIFIED JAUNDICE Status: Acute Current Visit: Yes (3) Edema of abdominal wall SNOMED Code(s): 492392462 Code(s): R60.0 - LOCALIZED EDEMA Status: Acute Current Visit: Yes - Problem List Review Problem List Initiated/Reviewed/Updated: Yes - My Orders Last 24 Hours: Active Orders 24 hr Category Date Time Status Patient Status [ADT] Routine ADT 07/09/18 19:05 Active Communication Order [RC] ROUTINE Care 07/09/18 19:32 Active Notify Provider Vital Signs [RC] ASDIRECTED Care 07/09/18 19:07 Active Oxygen Therapy [RC] PRN Care 07/09/18 19:05 Active Up ad Opal [RC] ASDIRECTED Care 07/09/18 19:05 Active VTE/DVT Education [RC] Per Unit Routine Care 07/09/18 19:05 Active Vital Signs [RC] Q4H Care 07/09/18 19:05 Active Full Liquid Diet [DIET] Diet 07/10/18 Lunch Active Bisacodyl [Dulcolax] Med 07/10/18 09:00 Active 10 mg RECTAL DAILY D5 1/2 NS w/ 20 mEq/L KCl 1,000 ml Med 07/09/18 19:45 Active IV ASDIRECTED HYDROmorphone [Dilaudid] Med 07/09/18 22:42 Active 1 mg IVPUSH Q2H PRN Ketorolac [Toradol] Med 07/09/18 19:05 Active 30 mg IVPUSH Q6H PRN Levothyroxine [Levothroid] Med 07/10/18 06:00 Active 137 mcg PO DAILY@0600 Non-Formulary Medication [NF Drug] Med 07/10/18 07:48 Active 0 each PO DAILY@0600 Ondansetron [Zofran] Med 07/09/18 19:05 Active 4 mg IV Q4H PRN Piperacillin/Tazobactam [Zosyn] 3.375 gm Med 07/10/18 02:00 Active Sodium Chloride 0.9% [Normal Saline] 50 ml IV Q6H Polyethylene Glycol 3350 [MiraLAX] Med 07/10/18 09:00 Active 17 gm PO DAILY Saccharomyces Boulardii [Florastor] Med 07/09/18 21:00 Active 250 mg PO BID Sodium Chloride 0.9% [Saline Flush] Med 07/09/18 18:07 Active 10 ml FLUSH ASDIRECTED PRN hydrOXYzine pamoate [Vistaril] Med 07/10/18 08:00 Active 50 mg PO Q6H Peripheral IV Insertion Adult [OM.PC] Routine Oth 07/09/18 18:07 Ordered Sequential Compression Device [OM.PC] Per Unit Routine Oth 07/09/18 19:08 Ordered Resuscitation Status Routine Resus Stat 07/09/18 19:05 Ordered Medication Orders Bisacodyl (Dulcolax) 10 mg RECTAL DAILY [facility] Last Admin: 07/10/18 08:54 Dose: 10 mg Hydromorphone HCl (Dilaudid) 1 mg IVPUSH Q2H PRN PRN Reason: Pain (severe 7-10) Last Admin: 07/10/18 13:05 Dose: 1 mg Admin: 07/10/18 07:41 Dose: 1 mg Admin: 07/10/18 02:32 Dose: 1 mg Hydroxyzine Pamoate (Vistaril) 50 mg PO Q6H [facility] Last Admin: 07/10/18 14:24 Dose: 50 mg Admin: 07/10/18 08:52 Dose: 50 mg Potassium Chloride/Dextrose/Sod Cl (D5 1/2 Ns W/ 20 Meq/L Kcl) 1,000 mls @ 75 mls/hr IV ASDIRECTED [facility] Last Admin: 07/10/18 05:10 Dose: 125 mls/hr Piperacillin Sod/Tazobactam (Sod 3.375 gm/ Sodium Chloride) 50 mls @ 100 mls/ hr IV Q6H [facility] Last Admin: 07/10/18 14:16 Dose: 100 mls/hr Admin: 07/10/18 08:14 Dose: 100 mls/hr Admin: 07/10/18 02:35 Dose: 100 mls/hr Ketorolac Tromethamine (Toradol) 30 mg IVPUSH Q6H PRN PRN Reason: Pain (moderate 4-6) Last Admin: 07/10/18 11:21 Dose: 30 mg Admin: 07/10/18 03:30 Dose: 30 mg Admin: 07/09/18 19:50 Dose: 30 mg Levothyroxine Sodium (Levothroid) 137 mcg PO DAILY@0600 [facility] Last Admin: 07/10/18 06:19 Dose: 137 mcg Pantoprazole 20mg 0 each PO DAILY@0600 [facility] Last Admin: 07/10/18 09:06 Dose: 1 each Ondansetron HCl (Zofran) 4 mg IV Q4H PRN PRN Reason: Nausea/Vomiting Polyethylene Glycol (Miralax) 17 gm PO DAILY [facility] Last Admin: 07/10/18 08:50 Dose: 17 gm Saccharomyces Boulardii (Florastor) 250 mg PO BID [facility] Last Admin: 07/10/18 09:05 Dose: 250 mg Admin: 07/09/18 22:57 Dose: Sodium Chloride (Saline Flush) 10 ml FLUSH ASDIRECTED PRN PRN Reason: Keep Vein Open Last Admin: 07/10/18 13:05 Dose: 10 ml Admin: 07/10/18 11:28 Dose: 10 ml Admin: 07/10/18 11:21 Dose: 10 ml Admin: 07/10/18 02:25 Dose: 10 ml Admin: 07/09/18 20:38 Dose: 10 ml Admin: 07/09/18 18:33 Dose: 10 ml - Assessment Assessment (Free Text/Narrative):: lfts have bumped a little clinically much improved exam - Plan Plan (Free Text/Narrative):: continue current rx.
[2018-07-10] MEDS: D5 1/2 NS w/ 20 mEq/L KCl 1,000 ML IV SCH (17:35)
[2018-07-11] MEDS: Piperacillin/Tazobactam 3.375 GM in Sodium Chloride 0.9% 50 ML IV SCH ×4 (01:39→19:30)
[2018-07-11] MEDS: HYDROmorphone 2 MG/ML SDV IVPUSH PRN ×3 (03:11→12:27)
[2018-07-11] MEDS: LEVOTHYROXINE 137 MCG PO SCH (05:48)
[2018-07-11] MEDS: PANTOPRAZOLE 20 MG PO SCH (05:49)
[2018-07-11] MEDS: Bisacodyl 10 MG Supp RECTAL SCH (08:00)
[2018-07-11] MEDS: Polyethylene Glycol 3350 Powder 17 GM Packet PO SCH (08:04)
[2018-07-11] MEDS: Saccharomyces Boulardii (Probiotic) 250 MG Cap PO SCH ×2 (08:06→22:06)
[2018-07-11] MEDS: D5 1/2 NS w/ 20 mEq/L KCl 1,000 ML IV SCH (08:33)
[2018-07-11] MEDS ORDERED: Sodium Phosphate,Monobasic/Sodium Phosphate,Dibasic Enema 133 ML Bottle RECTAL ONE (09:49)
--- NOTE | 2018-07-11 09:53 | PCM.SURGPN ---
- General Info Date of Service: 07/11/18 Functional Status: Reports: Pain Controlled, Tolerating Diet, Ambulating, Urinating - Review of Systems General: Reports: Other (wants to go home ) Gastrointestinal: Reports: Abdominal Pain (better. ) Skin: Reports: Other (discoloration is improving) - Patient Data Vitals - Most Recent: Last Vital Signs Temp 98.5 F 07/11/18 07:45 Pulse 79 07/11/18 07:45 Resp 18 07/11/18 07:45 BP 139/88 07/11/18 07:45 Pulse Ox 92 L 07/11/18 07:45 Weight - Most Recent: 90.537 kg I&O - Last 24 Hours: Intake & Output 07/10/18 07/11/18 07/11/18 22:59 06:59 14:59 Intake Total 884 866 Output Total 550 Balance 884 316 Lab Results Last 24 Hrs: Laboratory Results - last 24 hr 07/10/18 07/10/18 07/11/18 Range/Units 15:00 15:00 06:28 PT 10.4 (8.7-11.1) INR 1.07 (0.89-1.13) Sodium 136 (135-145) mmol/L Potassium 3.7 (3.5-5.3) mmol/L Chloride 101 (100-110) mmol/L Carbon Dioxide 29 (21-32) mmol/L BUN 18 (7-18) mg/dL Creatinine 0.8 (0.55-1.02) mg/dL Est Cr Clr Drug Dosing 55.52 mL/min Estimated GFR (MDRD) > 60 (>60) BUN/Creatinine Ratio 22.5 H (9-20) Glucose 142 H (80-116) mg/dL Calcium 7.9 L (8.6-10.2) mg/dL Total Bilirubin 4.2 H 4.2 H (0.1-1.3) mg/dL Direct Bilirubin 2.49 H 2.44 H (0.10-0.20) mg/dL Indirect Bilirubin 1.8 H (0.0-1.0) mg/dL AST 32 H D 30 H (5-25) IU/L ALT 64 H 55 H D (12-36) U/L Alkaline Phosphatase 62 64 (56-112) IU/L Total Protein 6.2 5.8 L (6.0-8.0) g/dL Albumin 2.8 L 2.6 L (3.2-4.6) g/dL Globulin 3.2 g/dL Albumin/Globulin Ratio 0.8 Med Orders - Current: Current Medications Bisacodyl (Dulcolax) 10 mg RECTAL DAILY [facility] Last Admin: 07/11/18 08:00 Dose: 10 mg Hydromorphone HCl (Dilaudid) 1 mg IVPUSH Q2H PRN PRN Reason: Pain (severe 7-10) Last Admin: 07/11/18 08:05 Dose: 1 mg Hydroxyzine Pamoate (Vistaril) 50 mg PO Q6H [facility] Last Admin: 07/11/18 07:58 Dose: 50 mg Piperacillin Sod/Tazobactam (Sod 3.375 gm/ Sodium Chloride) 50 mls @ 100 mls/ hr IV Q6H [facility] Last Admin: 07/11/18 07:44 Dose: 100 mls/hr Potassium Chloride/Dextrose/Sod Cl (D5 1/2 Ns W/ 20 Meq/L Kcl) 1,000 mls @ 75 mls/hr IV Q13H [facility] Last Admin: 07/11/18 08:33 Dose: 75 mls/hr Ketorolac Tromethamine (Toradol) 30 mg IVPUSH Q6H PRN PRN Reason: Pain (moderate 4-6) Last Admin: 07/10/18 23:29 Dose: 30 mg Levothyroxine Sodium (Levothroid) 137 mcg PO DAILY@0600 [facility] Last Admin: 07/11/18 05:48 Dose: 137 mcg Pantoprazole 20mg 0 each PO DAILY@0600 [facility] Last Admin: 07/11/18 05:49 Dose: 20 each Ondansetron HCl (Zofran) 4 mg IV Q4H PRN PRN Reason: Nausea/Vomiting Polyethylene Glycol (Miralax) 17 gm PO DAILY [facility] Last Admin: 07/11/18 08:04 Dose: 17 gm Saccharomyces Boulardii (Florastor) 250 mg PO BID [facility] Last Admin: 07/11/18 08:06 Dose: 250 mg Sodium Chloride (Saline Flush) 10 ml FLUSH ASDIRECTED PRN PRN Reason: Keep Vein Open Last Admin: 07/10/18 13:05 Dose: 10 ml Discontinued Medications Bisacodyl (Dulcolax) 10 mg RECTAL ONETIME ONE Stop: 07/10/18 16:18 Last Admin: 07/10/18 18:44 Dose: 10 mg Hydromorphone HCl (Dilaudid) 0.5 mg IVPUSH ONETIME ONE Stop: 07/09/18 18:21 Last Admin: 07/09/18 18:44 Dose: 0.5 mg Hydromorphone HCl (Dilaudid) 0.5 mg IVPUSH Q2H PRN PRN Reason: Pain (severe 7-10) Last Admin: 07/09/18 21:21 Dose: 0.5 mg Hydroxyzine Pamoate (Vistaril) 50 mg PO Q6H PRN PRN Reason: Nausea/Vomiting Last Admin: 07/10/18 05:14 Dose: 50 mg Lactated Ringer's (Ringers, Lactated) 1,000 mls @ 125 mls/hr IV ASDIRECTED [facility] Last Admin: 07/09/18 19:00 Dose: 125 mls/hr Piperacillin Sod/Tazobactam (Sod 3.375 gm/ Sodium Chloride) 50 mls @ 100 mls/ hr IV Q6H [facility] Last Admin: 07/09/18 20:38 Dose: 100 mls/hr Potassium Chloride 20 meq/ (Premix) 100 mls @ 50 mls/hr IV ONETIME ONE Stop: 07/09/18 21:10 Last Admin: 07/09/18 19:39 Dose: 50 mls/hr Potassium Chloride/Dextrose/Sod Cl (D5 1/2 Ns W/ 20 Meq/L Kcl) 1,000 mls @ [facility] Last Admin: 07/10/18 05:10 Dose: 125 mls/hr Potassium Chloride (Kcl 20 Meq In Water 100 Ml) Confirm Administered Dose 100 mls @ as directed .ROUTE .STK-MED ONE Stop: 07/09/18 19:38 Last Admin: 07/09/18 19:47 Dose: Not Given Potassium Chloride 20 meq/ (Premix) 100 mls @ 50 mls/hr IV ONETIME ONE Stop: 07/10/18 09:43 Last Admin: 07/10/18 09:13 Dose: 50 mls/hr Iopamidol (Isovue-370 (76%)) 100 ml IV ONETIME ONE Stop: 07/09/18 18:38 Last Admin: 07/09/18 18:44 Dose: 93 ml Ondansetron HCl (Zofran) 4 mg IVPUSH ONETIME ONE Stop: 07/09/18 18:39 Last Admin: 07/09/18 18:42 Dose: 4 mg Tramadol HCl (Ultram) 100 mg PO Q6H PRN PRN Reason: Pain - Problem List & Annotations (1) Postoperative abdominal pain SNOMED Code(s): 86470884 Code(s): R10.9 - UNSPECIFIED ABDOMINAL PAIN; G89.18 - OTHER ACUTE POSTPROCEDURAL PAIN Status: Acute Current Visit: Yes (2) Elevated bilirubin SNOMED Code(s): 87301694 Code(s): R17 - UNSPECIFIED JAUNDICE Status: Acute Current Visit: Yes (3) Edema of abdominal wall SNOMED Code(s): 124159985 Code(s): R60.0 - LOCALIZED EDEMA Status: Acute Current Visit: Yes - Problem List Review Problem List Initiated/Reviewed/Updated: Yes - My Orders Last 24 Hours: Active Orders 24 hr Category Date Time Status Full Liquid Diet [DIET] Diet 07/10/18 Lunch Active Regular Diet [DIET] Diet 07/11/18 Lunch Ordered Bisacodyl [Dulcolax] Med 07/10/18 09:00 Active 10 mg RECTAL DAILY D5 1/2 NS w/ 20 mEq/L KCl 1,000 ml Med 07/10/18 17:30 Active IV Q13H Na Phos,M-B/Na Phos,DI-B [Fleet Enema] Med 07/11/18 09:49 Once 133 ml RECTAL ONETIME ONE Polyethylene Glycol 3350 [MiraLAX] Med 07/10/18 09:00 Active 17 gm PO DAILY Convert IV to Saline Lock [OM.PC] Routine Oth 07/11/18 09:49 Ordered Medication Orders Bisacodyl (Dulcolax) 10 mg RECTAL DAILY [facility] Last Admin: 07/11/18 08:00 Dose: 10 mg Admin: 07/10/18 08:54 Dose: 10 mg Hydromorphone HCl (Dilaudid) 1 mg IVPUSH Q2H PRN PRN Reason: Pain (severe 7-10) Last Admin: 07/11/18 08:05 Dose: 1 mg Admin: 07/11/18 03:11 Dose: 1 mg Admin: 07/10/18 13:05 Dose: 1 mg Admin: 07/10/18 07:41 Dose: 1 mg Admin: 07/10/18 02:32 Dose: 1 mg Hydroxyzine Pamoate (Vistaril) 50 mg PO Q6H [facility] Last Admin: 07/11/18 07:58 Dose: 50 mg Admin: 07/11/18 01:39 Dose: 50 mg Admin: 07/10/18 19:32 Dose: 50 mg Admin: 07/10/18 14:24 Dose: 50 mg Admin: 07/10/18 08:52 Dose: 50 mg Piperacillin Sod/Tazobactam (Sod 3.375 gm/ Sodium Chloride) 50 mls @ 100 mls/ hr IV Q6H [facility] Last Admin: 07/11/18 07:44 Dose: 100 mls/hr Admin: 07/11/18 01:39 Dose: 100 mls/hr Admin: 07/10/18 19:32 Dose: 100 mls/hr Admin: 07/10/18 14:16 Dose: 100 mls/hr Admin: 07/10/18 08:14 Dose: 100 mls/hr Admin: 07/10/18 02:35 Dose: 100 mls/hr Potassium Chloride/Dextrose/Sod Cl (D5 1/2 Ns W/ 20 Meq/L Kcl) 1,000 mls @ 75 mls/hr IV Q13H [facility] Last Admin: 07/11/18 08:33 Dose: 75 mls/hr Infusion: 07/11/18 08:33 Dose: 75 mls/hr Admin: 07/10/18 17:35 Dose: 75 mls/hr Ketorolac Tromethamine (Toradol) 30 mg IVPUSH Q6H PRN PRN Reason: Pain (moderate 4-6) Last Admin: 07/10/18 23:29 Dose: 30 mg Admin: 07/10/18 11:21 Dose: 30 mg Admin: 07/10/18 03:30 Dose: 30 mg Admin: 07/09/18 19:50 Dose: 30 mg Levothyroxine Sodium (Levothroid) 137 mcg PO DAILY@0600 [facility] Last Admin: 07/11/18 05:48 Dose: 137 mcg Admin: 05/24/19 06:19 Dose: 137 mcg Pantoprazole 20mg 0 each PO DAILY@0600 [facility] Last Admin: 07/11/18 05:49 Dose: 20 each Admin: 07/10/18 09:06 Dose: 1 each Ondansetron HCl (Zofran) 4 mg IV Q4H PRN PRN Reason: Nausea/Vomiting Polyethylene Glycol (Miralax) 17 gm PO DAILY [facility] Last Admin: 07/11/18 08:04 Dose: 17 gm Admin: 07/10/18 08:50 Dose: 17 gm Saccharomyces Boulardii (Florastor) 250 mg PO BID [facility] Last Admin: 07/11/18 08:06 Dose: 250 mg Admin: 07/10/18 20:13 Dose: 250 mg Admin: 07/10/18 09:05 Dose: 250 mg Admin: 07/09/18 22:57 Dose: Sodium Chloride (Saline Flush) 10 ml FLUSH ASDIRECTED PRN PRN Reason: Keep Vein Open Last Admin: 07/10/18 13:05 Dose: 10 ml Admin: 07/10/18 11:28 Dose: 10 ml Admin: 07/10/18 11:21 Dose: 10 ml Admin: 07/10/18 02:25 Dose: 10 ml Admin: 07/09/18 20:38 Dose: 10 ml Admin: 07/09/18 18:33 Dose: 10 ml - Assessment Assessment (Free Text/Narrative):: clinical exam is better LFT are essentially stable - Plan Plan (Free Text/Narrative):: will advance diet fleets enema if tolerates anticipate d/c
--- NOTE | 2018-07-11 14:46 | PCM.SN ---
- Free Text/Narrative Note: though pt is moving bowels now still is uncomfortable. will watch another night. convert to inpt.
[2018-07-11] MEDS: Ketorolac 30 MG/ML SDV IVPUSH PRN (16:16)
[2018-07-11] MEDS: Sodium Chloride 0.9% 10 ML Syringe FLUSH PRN ×2 (16:17→20:30)
[2018-07-12] MEDS: Piperacillin/Tazobactam 3.375 GM in Sodium Chloride 0.9% 50 ML IV SCH ×2 (02:09→08:14)
[2018-07-12] MEDS: LEVOTHYROXINE 137 MCG PO SCH (06:20)
[2018-07-12] MEDS: PANTOPRAZOLE 20 MG PO SCH (06:21)
[2018-07-12 07:53] VITALS: BP 135/73
[2018-07-12] MEDS: Saccharomyces Boulardii (Probiotic) 250 MG Cap PO SCH (08:18)
[2018-07-12] MEDS: Polyethylene Glycol 3350 Powder 17 GM Packet PO SCH (08:19)
[2018-07-12] MEDS: Bisacodyl 10 MG Supp RECTAL SCH (08:19)
--- NOTE | 2018-07-12 09:18 | PCM.DCSUM1 ---
Discharge Summary - Hospital Course Free Text/Narrative:: Pt admitted with complaint of abd pain. CT did not demonstrate any liver abnl other than a possible cyst. No leak fluid collection. Duct system was nl did have some swelling/erythema in the upper abd wall. Placed on antibiotics this did resolve. Had an elevation in her bilirubin. This has started to track down. Discharged with improved exam. - Discharge Data Discharge Date: 07/12/18 Discharge Disposition: Home, Self-Care 01 Condition: Good - Discharge Diagnosis/Problem(s) (1) Postoperative abdominal pain SNOMED Code(s): 04051735 ICD Code: R10.9 - UNSPECIFIED ABDOMINAL PAIN; G89.18 - OTHER ACUTE POSTPROCEDURAL PAIN Status: Acute Current Visit: Yes (2) Elevated bilirubin SNOMED Code(s): 53658467 ICD Code: R17 - UNSPECIFIED JAUNDICE Status: Acute Current Visit: Yes (3) Edema of abdominal wall SNOMED Code(s): 568818773 ICD Code: R60.0 - LOCALIZED EDEMA Status: Acute Current Visit: Yes - Patient Instructions Diet: Usual Diet as Tolerated, No Alcoholic Beverages Activity: No Strenuous Activities, Rest and Relax Today Driving: Do Not Drive Showering/Bathing: May Shower Notify Provider of: Fever, Increased Pain - Discharge Plan *PRESCRIPTION DRUG MONITORING PROGRAM REVIEWED*: Not Applicable *COPY OF PRESCRIPTION DRUG MONITORING REPORT IN PATIENT ZORA: Not Applicable Home Medications: Home Meds Cyanocobalamin (Vitamin B12) [Vitamin B12] 1,000 mcg PO DAILY 11/14/14 [History] Vitamin E 1,000 unit PO DAILY 11/14/14 [History] Bisoprolol Fumarate/HCTZ [Ziac 5-6.25 MG] 1 tab PO DAILY 11/15/14 [History] Betamethasone Dipropionate [Diprosone 0.05% Crm] 1 applic TP BID PRN 07/16/17 [ History] Ferrous Sulfate 325 mg PO DAILY 07/16/17 [History] Furosemide [Lasix] 20 mg PO DAILY PRN 07/16/17 [History] Levothyroxine Sodium 137 mcg PO DAILY 07/16/17 [History] Pantoprazole Sodium [Protonix] 20 mg PO DAILY 07/06/18 [History] Acetaminophen/HYDROcodone [[place] 325-5 MG] 1 - 2 tab PO Q6H PRN #20 tab [Rx] Celecoxib [CeleBREX] 100 mg PO BID #10 cap 07/07/18 [Rx] Referrals: Haresh Munguia MD [Physician] - (keep tues appt as scheduled ) - Discharge Summary/Plan Comment DC Time >30 min.: No - General Info Date of Service: 07/12/18 Functional Status: Reports: Pain Controlled - Review of Systems General: Reports: No Symptoms Pulmonary: Reports: No Symptoms Cardiovascular: Reports: No Symptoms Gastrointestinal: Reports: No Symptoms - Patient Data Vitals - Most Recent: Last Vital Signs Temp 100.0 F 07/12/18 07:51 Pulse 88 07/12/18 07:51 Resp 18 07/12/18 07:51 BP 135/73 07/12/18 07:51 Pulse Ox 93 L 07/12/18 07:51 Weight - Most Recent: 90.537 kg I&O - Last 24 hours: Intake & Output 07/11/18 07/12/18 07/12/18 22:59 06:59 14:59 Intake Total 350 50 Balance 350 50 Lab Results - Last 24 hrs: Laboratory Results - last 24 hr 07/12/18 07/12/18 Range/Units 06:30 06:30 WBC 6.9 (4.5-12.0) X10-3/uL RBC 3.66 (3.23-5.20) x10(6)uL Hgb 11.9 (11.5-15.5) g/dL Hct 34.4 (30.0-51.3) % MCV 94.0 (80-96) fL MCH 32.5 (27.7-33.6) pg MCHC 34.6 (32.2-35.4) g/dL RDW 12.4 (11.5-15.5) % Plt Count 207 (125-369) X10(3)uL MPV 8.0 (7.4-10.4) fL Neut % (Auto) 70.9 (46-82) % Lymph % (Auto) 12.2 L (13-37) % [place] % (Auto) 7.7 (4-12) % Eos % (Auto) 9 H (1.0-5.0) % Baso % (Auto) 0 (0-2) % Neut # (Auto) 5.0 (1.6-8.3) # Lymph # (Auto) 0.8 (0.6-5.0) # [place] # (Auto) 0.5 (0.0-1.3) # Eos # (Auto) 0.6 (0.0-0.8) # Baso # (Auto) 0.0 (0.0-0.2) # Sodium 140 (135-145) mmol/L Potassium 3.6 (3.5-5.3) mmol/L Chloride 104 (100-110) mmol/L Carbon Dioxide 27 (21-32) mmol/L BUN 20 H (7-18) mg/dL Creatinine 0.7 (0.55-1.02) mg/dL Est Cr Clr Drug Dosing 63.45 mL/min Estimated GFR (MDRD) > 60 (>60) BUN/Creatinine Ratio 28.6 H (9-20) Glucose 97 (80-116) mg/dL Calcium 8.2 L (8.6-10.2) mg/dL Total Bilirubin 3.4 H (0.1-1.3) mg/dL AST 28 H (5-25) IU/L ALT 50 H (12-36) U/L Alkaline Phosphatase 74 (56-112) IU/L Total Protein 5.7 L (6.0-8.0) g/dL Albumin 2.5 L (3.2-4.6) g/dL Globulin 3.2 g/dL Albumin/Globulin Ratio 0.8 Med Orders - Current: Current Medications Bisacodyl (Dulcolax) 10 mg RECTAL DAILY [facility] Last Admin: 07/12/18 08:19 Dose: 10 mg Hydromorphone HCl (Dilaudid) 1 mg IVPUSH Q2H PRN PRN Reason: Pain (severe 7-10) Last Admin: 07/11/18 12:27 Dose: 1 mg Hydroxyzine Pamoate (Vistaril) 50 mg PO Q6H [facility] Last Admin: 07/12/18 08:18 Dose: 50 mg Piperacillin Sod/Tazobactam (Sod 3.375 gm/ Sodium Chloride) 50 mls @ 100 mls/ hr IV Q6H [facility] Last Admin: 07/12/18 08:14 Dose: 100 mls/hr Ketorolac Tromethamine (Toradol) 30 mg IVPUSH Q6H PRN PRN Reason: Pain (moderate 4-6) Last Admin: 07/11/18 16:16 Dose: 30 mg Levothyroxine Sodium (Levothroid) 137 mcg PO DAILY@0600 [facility] Last Admin: 07/12/18 06:20 Dose: 137 mcg Pantoprazole 20mg 0 each PO DAILY@0600 [facility] Last Admin: 07/12/18 06:21 Dose: 1 each Ondansetron HCl (Zofran) 4 mg IV Q4H PRN PRN Reason: Nausea/Vomiting Polyethylene Glycol (Miralax) 17 gm PO DAILY [facility] Last Admin: 07/12/18 08:19 Dose: 17 gm Saccharomyces Boulardii (Florastor) 250 mg PO BID [facility] Last Admin: 07/12/18 08:18 Dose: 250 mg Sodium Chloride (Saline Flush) 10 ml FLUSH ASDIRECTED PRN PRN Reason: Keep Vein Open Last Admin: 07/11/18 20:30 Dose: 10 ml Discontinued Medications Bisacodyl (Dulcolax) 10 mg RECTAL ONETIME ONE Stop: 07/10/18 16:18 Last Admin: 07/10/18 18:44 Dose: 10 mg Hydromorphone HCl (Dilaudid) 0.5 mg IVPUSH ONETIME ONE Stop: 07/09/18 18:21 Last Admin: 07/09/18 18:44 Dose: 0.5 mg Hydromorphone HCl (Dilaudid) 0.5 mg IVPUSH Q2H PRN PRN Reason: Pain (severe 7-10) Last Admin: 07/09/18 21:21 Dose: 0.5 mg Hydroxyzine Pamoate (Vistaril) 50 mg PO Q6H PRN PRN Reason: Nausea/Vomiting Last Admin: 07/10/18 05:14 Dose: 50 mg Lactated Ringer's (Ringers, Lactated) 1,000 mls @ 125 mls/hr IV ASDIRECTED [facility] Last Admin: 07/09/18 19:00 Dose: 125 mls/hr Piperacillin Sod/Tazobactam (Sod 3.375 gm/ Sodium Chloride) 50 mls @ 100 mls/ hr IV Q6H [facility] Last Admin: 07/09/18 20:38 Dose: 100 mls/hr Potassium Chloride 20 meq/ (Premix) 100 mls @ 50 mls/hr IV ONETIME ONE Stop: 07/09/18 21:10 Last Admin: 07/09/18 19:39 Dose: 50 mls/hr Potassium Chloride/Dextrose/Sod Cl (D5 1/2 Ns W/ 20 Meq/L Kcl) 1,000 mls @ 75 mls/hr IV ASDIRECTED [facility] Last Admin: 07/10/18 05:10 Dose: 125 mls/hr Potassium Chloride (Kcl 20 Meq In Water 100 Ml) Confirm Administered Dose 100 mls @ as directed .ROUTE .STK-MED ONE Stop: 07/09/18 19:38 Last Admin: 07/09/18 19:47 Dose: Not Given Potassium Chloride 20 meq/ (Premix) 100 mls @ 50 mls/hr IV ONETIME ONE Stop: 07/10/18 09:43 Last Admin: 07/10/18 09:13 Dose: 50 mls/hr Potassium Chloride/Dextrose/Sod Cl (D5 1/2 Ns W/ 20 Meq/L Kcl) 1,000 mls @ 75 mls/hr IV Q13H [facility] Last Admin: 07/11/18 08:33 Dose: 75 mls/hr Iopamidol (Isovue-370 (76%)) 100 ml IV ONETIME ONE Stop: 07/09/18 18:38 Last Admin: 07/09/18 18:44 Dose: 93 ml Ondansetron HCl (Zofran) 4 mg IVPUSH ONETIME ONE Stop: 07/09/18 18:39 Last Admin: 07/09/18 18:42 Dose: 4 mg Sodium Biphosphate/Sodium Phosphate (Fleet Enema) 133 ml RECTAL ONETIME ONE Stop: 07/11/18 09:50 Last Admin: 07/11/18 11:09 Dose: 133 ml Tramadol HCl (Ultram) 100 mg PO Q6H PRN PRN Reason: Pain - Exam General: Reports: Alert, Oriented, Cooperative Lungs: Reports: Clear to Auscultation, Normal Respiratory Effort Cardiovascular: Reports: Regular Rate, Regular Rhythm GI/Abdominal Exam: Normal Bowel Sounds, Soft, Non-Tender
== END 2018-07-12 10:38 | disposition home or self-care (01) | DRG 392 ==
LOC: FB.ED 16:56 → FB.MS 19:41 → OBSVTOIN 07-11 15:00
PROVIDERS: ADMIT Surgery; ATTEND Family Medicine
DX: R10.9 Unspecified abdominal pain (principal); G89.18 Other acute postprocedural pain; E80.6 Other disorders of bilirubin metabolism; I10 Essential (primary) hypertension; E03.9 Hypothyroidism, unspecified; Z98.890 Other specified postprocedural states; R60.0 Localized edema; E87.6 Hypokalemia; H40.9 Unspecified glaucoma; H91.90 Unspecified hearing loss, unspecified ear; Z96.1 Presence of intraocular lens; Z86.718 Personal history of other venous thrombosis and embolism; Z85.41 Personal history of malignant neoplasm of cervix uteri; M19.90 Unspecified osteoarthritis, unspecified site; E66.9 Obesity, unspecified; Z68.30 Body mass index [BMI] 30.0-30.9, adult; Z85.3 Personal history of malignant neoplasm of breast; Z91.018 Allergy to other foods; Z90.10 Acquired absence of unspecified breast and nipple; Z90.710 Acquired absence of both cervix and uterus; Z90.79 Acquired absence of other genital organ(s); Z90.722 Acquired absence of ovaries, bilateral; Z96.659 Presence of unspecified artificial knee joint
CPT/HCPCS: 36415 ×3; 74177; 80053 ×3; 80076; 81001; 82247 ×3; 82248 ×3; 85025 ×2; 85610; 96361; 96365; 96375; 99285; A9270 ×20; G0480; J1170 ×8; J1885 ×4; J2405; J2543 ×8; J3480 ×5; J7050 ×8; J7120; Q9967; 96366; 96367; 96376; G0378

== ENCOUNTER 2022-09-02 07:48 | Emergency (ER) | payer MEDICARE, BC ==
[2022-09-02] MEDS: Metoprolol Tartrate 50 MG Tab PO ONE (08:21)
[2022-09-02] MEDS: Metoprolol Tartrate 25 MG Tab ONE (08:26)
[2022-09-02] MEDS: Metoprolol Tartrate 25 MG Tab PO ONE (08:27)
[2022-09-02] MEDS: Sodium Chloride 0.9% 1,000 ML IV SCH (08:30)
[2022-09-02 08:38] LABS: BASOPHILS ABSOLUTE AUTO 0.1 x10-3/uL (0.0-0.1); BASOPHILS PERCENT AUTO 0.9 % (0.2-1.5); EOSINOPHILS ABSOLUTE AUTO 0.1 x10-3/uL (0.0-0.8); EOSINOPHILS PERCENT AUTO 1.2 % (0.6-8.1); HEMATOCRIT 39.2 % (34.2-48.2); HEMOGLOBIN 13.4 g/dL (11.4-15.5); LYMPHOCYTES ABSOLUTE AUTO 0.9 x10-3/uL (1.0-4.4); LYMPHOCYTES PERCENT AUTO 13.5 % (18.4-52.1); MEAN CORPUSCULAR HEMOGLOBIN 31.5 pg (23.9-33.9); MEAN CORPUSCULAR HGB CONC 34.3 g/dL (31.9-34.8); MEAN CORPUSCULAR VOLUME 91.8 fL (76.7-100.5); MEAN PLATELET VOLUME 8.2 fL (7.1-12.4); MONOCYTES ABSOLUTE AUTO 0.7 x10-3/uL (0.3-1.0); MONOCYTES PERCENT AUTO 10.2 % (4.4-15.7); NEUTROPHILS ABSOLUTE AUTO 5.1 x10-3/uL (1.5-6.3); NEUTROPHILS PERCENT AUTO 74.2 % (30.8-76.2); PLATELET COUNT,PLT 223 x10(3)uL (151-488); RED BLOOD CELL COUNT 4.27 x10(6)uL (3.60-5.20); RED CELL DISTRIBUTION WIDTH 13.5 % (12.3-16.5); WHITE BLOOD CELL COUNT,WBC 6.9 x10-3/uL (3.0-10.3)
[2022-09-02 08:40] LABS: BLOOD UREA NITROGEN,BUN 14 mg/dL (7-18); BUN/CREATININE RATIO 17.5 (9-20); CALCIUM 9.3 mg/dL (8.6-10.2); CARBON DIOXIDE,CO2 30 mmol/L (21-32); CHLORIDE,CL 103 mmol/L (100-110); CREATININE 0.8 mg/dL (0.55-1.02); ESTIMATED GFR 75 mL/min (>60); GLUCOSE RANDOM 150 mg/dL (80-116); POTASSIUM,K 3.5 mmol/L (3.5-5.3); SODIUM,NA 142 mmol/L (135-145)
[2022-09-02 08:46] LABS: A/G RATIO 1.1; ALANINE AMINOTRANSFERASE,ALT 28 U/L (12-36); ALBUMIN 3.7 g/dL (3.2-4.6); ALKALINE PHOSPHATASE 65 IU/L (56-112); ASPARTATE AMNIOTRANSFERASE,AST 23 IU/L (5-25); BILIRUBIN TOTAL 1.3 mg/dL (0.1-1.3); MAGNESIUM 2.1 mg/dL (1.8-2.5); PROTEIN TOTAL,TP 7.2 g/dL (6.0-8.0)
[2022-09-02 08:51] LABS: PROTHROMBIN TIME 10.3 sec (9.0-11.1); PTT,PARTIAL THROMBOPLSTIN TIME 28.3 SECONDS (24.4-33.2)
[2022-09-02 08:54] LABS: TROPONIN I 136.4 pg/mL (4.0-60.3)
[2022-09-02] MEDS: Diltiazem 25 MG/5 ML SDV IVPUSH ONE (09:14)
[2022-09-02] MEDS: Aspirin 81 MG Tab.Chew PO STA (10:47)
[2022-09-02 14:29] VITALS: BP 139/61
[2022-09-02 16:12] VITALS: PULSE 87
== END 2022-09-02 14:57 ==
LOC: FB.ED 07:48
DX: I48.91 Unspecified atrial fibrillation (principal); R77.8 Other specified abnormalities of plasma proteins; I10 Essential (primary) hypertension; E03.9 Hypothyroidism, unspecified; K21.9 Gastro-esophageal reflux disease without esophagitis; M19.90 Unspecified osteoarthritis, unspecified site; E66.9 Obesity, unspecified; Z79.899 Other long term (current) drug therapy; Z91.018 Allergy to other foods
CPT/HCPCS: 36415; 71045; 80053; 83735; 83880; 84484; 85025; 85610; 85730; 93005; 96361; 96374; 99285; A9270; J3490; J7030

== ENCOUNTER 2023-06-09 08:20 | Day surgery (SDC) | payer MEDICARE, BC ==
[2023-06-09] MEDS ORDERED: Propofol 200 MG/20 ML SDV IV ONE (08:21)
[2023-06-09] MEDS ORDERED: Midazolam 1 MG/ML 2 ML SDV IV ONE (08:21)
[2023-06-09] MEDS ORDERED: Sodium Chloride 0.9% 10 ML Syringe FLUSH PRN (08:30)
[2023-06-09] MEDS: Lactated Ringers 1,000 ML IV SCH (09:48)
[2023-06-09] MEDS: Simethicone Drops 40 MG/0.6 ML 30 ML Bottle PO ONE (10:31)
[2023-06-09 11:38] VITALS: BP 151/83; PULSE 65
== END 2023-06-09 11:43 | disposition home or self-care (01) ==
LOC: FB.SDS 08:20
PROVIDERS: ATTEND Surgery
DX: Z12.11 Encounter for screening for malignant neoplasm of colon (principal); D12.6 Benign neoplasm of colon, unspecified; K57.30 Diverticulosis of large intestine without perforation or abscess without bleeding; Z86.010 Personal history of colon polyps; I10 Essential (primary) hypertension; K21.9 Gastro-esophageal reflux disease without esophagitis; E66.9 Obesity, unspecified; Z87.891 Personal history of nicotine dependence; Z79.899 Other long term (current) drug therapy
CPT/HCPCS: 00811; 88305; 99100; A9270-GY; J2250; J2704; J7120